=== PATIENT | female | born 1955 | race African-American/Black ===

== ENCOUNTER 2020-09-20 17:37 | Outpatient (REF) | payer MEDICARE, MEDICAID, SELFPAY | END 2020-09-20 17:38 | disposition home or self-care (01) | LOC: HO.LAB 17:37 | PROVIDERS: Visit Provider Internal Medicine | DX: Z20.828 Contact with and (suspected) exposure to other viral communicable diseases (principal) | CPT/HCPCS: C9803; U0003 ==

== ENCOUNTER 2021-11-29 15:37 | Outpatient (REF) | payer MEDICARE, MEDICAID, SELFPAY ==
[2021-11-29 16:44] LABS: MANUAL DIFF FLAG NO
[2021-11-29 16:58] LABS: Basophils Percent Auto 0.5 % (0-2); Eosinophils Absolute Auto 0.2 X10*3/uL (0.0-0.4); Eosinophils Percent Auto 1.9 % (0-4); Hematocrit 44.2 % (37.0-47.0); Hemoglobin 13.6 g/dl (12.0-16.0); Imm Gran Abs Auto 0.03 X10*3/uL (0.00-0.03); Imm Gran Pct Auto 0.4 % (0.0-0.4); Lymphocytes Absolute Auto 2.9 X10*3/uL (1.2-4.9); Lymphocytes Percent Auto 34.4 % (20-40); Mean Corpuscular HGB Conc 30.8 g/dl (31.0-35.0); Mean Corpuscular Hemoglobin 31.3 pg (27.0-33.0); Mean Corpuscular Volume 101.6 fL (80.0-98.0); Mean Platelet Volume 8.7 fL (9.4-12.3); Monocytes Absolute Auto 0.5 X10*3/uL (0.1-1.2); Monocytes Percent Auto 5.9 % (2-11); Neutrophils Absolute Auto 4.8 x10*3/uL (2.0-8.3); Neutrophils Percent Auto 56.9 % (45-73); Platelet Count 384 X10*3/uL (160-400); Red Blood Count 4.35 X10*6/uL (4.20-5.50); Red Cell Distribution Width 14.5 % (11.0-16.0); White Blood Count 8.4 X10*3/uL (4.8-10.8)
== END 2021-11-29 15:38 | disposition home or self-care (01) ==
LOC: HO.LAB 15:37
PROVIDERS: Visit Provider Nurse Practitioner
DX: K57.92 Diverticulitis of intestine, part unspecified, without perforation or abscess without bleeding (principal); K92.1 Melena; R11.2 Nausea with vomiting, unspecified; R10.9 Unspecified abdominal pain
CPT/HCPCS: 36415; 80053; 85025; 99202

== ENCOUNTER 2021-12-19 14:17 | Outpatient (REF) | payer MEDICARE, MEDICAID, SELFPAY ==
[2021-12-19 15:21] LABS: Alanine Aminotransferase 11 U/L (0-31); Albumin Level 4.1 g/dL (3.5-5.0); Alkaline Phosphatase 54 U/L (39-117); Anion Gap 11 (12-20); Aspartate Amino Transferase 19 U/L (5-31); Bilirubin Total 0.6 mg/dL (0.0-1.0); Blood Urea Nitrogen 18 mg/dL (9-16); Calcium 9.7 mg/dL (8.4-10.2); Carbon Dioxide 27 mmol/L (22-29); Chloride 108 mmol/L (96-108); Estimated Glomerular Filt Rate > 60; Glucose Random 111 mg/dL (60-115); Potassium 3.7 mmol/L (3.3-5.1); Sodium 142 mmol/L (135-145); Total Protein 6.6 g/dL (6.5-8.0)
== END 2021-12-19 14:18 | disposition home or self-care (01) ==
LOC: HO.LAB 14:17
PROVIDERS: Visit Provider Nurse Practitioner
DX: K57.92 Diverticulitis of intestine, part unspecified, without perforation or abscess without bleeding (principal); K92.1 Melena
CPT/HCPCS: 36415; 80053

== ENCOUNTER 2022-01-07 07:56 | Outpatient (REF) | payer MEDICARE, MEDICAID, SELFPAY ==
--- NOTE | ~2022-01-07 | CT_ITS ---
EXAMINATION: CT ABDOMEN AND PELVIS WITH CONTRAST CLINICAL INFORMATION: Unspecified abdominal pain. COMPARISON: 06/17/2008 TECHNIQUE: Multidetector volumetric images were obtained from the superior aspect of the liver through the pubic symphysis following administration 85 mL of Omnipaque 350 intravenous contrast. Sagittal and coronal reformatted images were obtained on the technologist's workstation. Oral contrast: Yes This CT examination was performed using dose optimization techniques as appropriate, variously including the following: *Automated exposure control *Adjustment of mA and/or kV according to patient size (this includes techniques or standardized protocols for targeted exams where dose is matched to indication/reason for exam; i.e. extremities or head) *Use of iterative reconstruction technique DLP: 596 mGy-cm FINDINGS: LUNG BASES: The visualized lung bases are unremarkable. LIVER, GALLBLADDER, AND BILIARY TREE: The liver is normal in size, shape, and attenuation. No focal hepatic lesion or biliary ductal dilatation is present. The gallbladder is unremarkable with no evidence of radiopaque gallstones, gallbladder wall thickening, or obvious pericholecystic inflammatory changes. PANCREAS: Unremarkable. SPLEEN: Unremarkable. ADRENAL GLANDS: There is mild nodularity of the right adrenal gland measured 1.0 x 1.1 cm. KIDNEYS AND URETERS: There is a 6 mm exophytic cyst in the lower pole of the left kidney. There is no hydroureteronephrosis, renal masses. BLADDER: Unremarkable. GASTROINTESTINAL TRACT: The small and large bowel are unremarkable. The appendix is unremarkable. ABDOMINAL WALL: No significant hernia is appreciated. LYMPH NODES: Normal. VASCULAR: Unremarkable. PELVIC VISCERA: Patient is status post hysterectomy. There is small amount of fluid in the right site of the pelvis of unknown origin. OSSEOUS STRUCTURES: There are degenerative changes at the level of L4-L5 and L5-S1 with narrowing of disc spaces and vacuum phenomenon. CT/CT abdomen pelvis w con IMPRESSION: Mild hypertrophy of the right adrenal gland. Small exophytic cyst of left kidney. Status post hysterectomy. Small amount of fluid in the right side to the pelvis of unknown origin. Fleischner guidelines were followed.
[2022-01-07] MEDS: Barium Sulfate Oral (Vanilla) 450 ML ORAL.SUSP 900 ML PO (11:16)
[2022-01-07] MEDS: iohexoL 350 MG/ML 100 ML INFUS..BTL IV (11:16)
== END 2022-01-07 07:57 | disposition home or self-care (01) ==
LOC: HO.CT 07:56
PROVIDERS: Visit Provider Nurse Practitioner
DX: R10.9 Unspecified abdominal pain (principal); R11.2 Nausea with vomiting, unspecified
CPT/HCPCS: 74177; Q9967

== ENCOUNTER → 2022-01-24 15:53 | Outpatient (BNVA) | payer MEDICARE, MEDICAID, SELFPAY | PROVIDERS: Visit Provider Nurse Practitioner | DX: K57.92 Diverticulitis of intestine, part unspecified, without perforation or abscess without bleeding (principal); R11.2 Nausea with vomiting, unspecified | CPT/HCPCS: 99212 ==

== ENCOUNTER → 2022-03-05 16:06 | Outpatient (BNVA) | payer MEDICARE, MEDICAID, SELFPAY | PROVIDERS: PCP Internal Medicine; Referring Provider Internal Medicine; Visit Provider Nurse Practitioner | DX: K57.92 Diverticulitis of intestine, part unspecified, without perforation or abscess without bleeding (principal); D75.89 Other specified diseases of blood and blood-forming organs; R11.2 Nausea with vomiting, unspecified | CPT/HCPCS: 99212 ==

== ENCOUNTER 2022-03-08 08:57 | Outpatient (REF) | payer MEDICARE, MEDICAID, SELFPAY ==
--- NOTE | ~2022-03-08 | MM_ITS ---
EXAMINATION: MM SCREENING DIGITAL BREAST TOMOSYNTHESIS, BILATERAL CLINICAL INFORMATION: Screening. Asymptomatic. The lifetime risk of breast cancer based on the Tyrer-Cuzick Model is 3%. COMPARISON: Outside mammography: 04/02/2011 ([facility]). TECHNIQUE: Digital breast tomosynthesis is performed in both the craniocaudal and mediolateral oblique views along with computer-aided detection (CAD). Synthesized 2D images are generated from the tomosynthesis. FINDINGS: The breasts are almost entirely fatty (ACR BI-RADS breast composition Category a). There are no significant masses, abnormal calcifications, or other abnormalities. Background stromal and fibroglandular densities are stable. No architectural abnormality. The axilla and skin contours are unremarkable. No significant changes. MM/MM tomosynthesis screening BI IMPRESSION: No mammographic evidence of malignancy. ASSESSMENT: BI-RADS 1: Negative RECOMMENDATION: Routine annual mammography screening. This patient's information was entered into a reminder system with a target due date for their next mammogram.
--- NOTE | ~2022-03-08 | MM_ITS ---
EXAMINATION: BONE DENSITOMETRY CLINICAL INDICATION: Menopause. COMPARISON: This is the patient's baseline examination. TECHNIQUE: Using a [employer] DXA System (software version: 13.1) manufactured by [employer], dual-energy x-ray absorptiometry was performed of the lumbar spine and left hip. The images are of good technical quality. Summary results are attached. FINDINGS: AP SPINE L1-L3 (excluding L4): The data of L1-L4 has been changed to exclude the L4 vertebral body, because degenerative sclerosis at this level may cause overestimation of lumbar spine density. BMD 1.156 g/cm2, Z-score 0.6, T-score -0.1, normal. LEFT FEMUR, NECK: BMD 0.830 g/cm2, Z-score -0.9, T-score -1.5, osteopenia. LEFT FEMUR, TOTAL: BMD 0.818 g/cm2, Z-score -1.3, T-score -1.5, osteopenia. IDENTIFIED RISK FACTORS: Menopause, hysterectomy, tobacco use (current smoker). HISTORY OF FRACTURE: None listed. MEDICATIONS: None listed. MM/XR DEXA axial skeleton IMPRESSION: 1. DIAGNOSIS: Osteopenia based on the lowest T-score value of -1.5 in the femur neck and total femur applying World Health Organization criteria. 2. 10-YEAR FRACTURE RISK PREDICTION, FRAX: Major osteoporotic fracture (clinical spine, forearm, hip or shoulder) 4.3%. Hip fracture 0.9%. 3. Treatment Recommendations: NOF guidelines recommend consideration for treatment in postmenopausal women and men age 50 and older presenting with the following: -A hip or vertebral (clinical or morphometric) fracture. -T-score less than or equal to -2.5 at the femoral neck or spine after appropriate evaluation to exclude secondary causes. -Low bone mass at the hip or spine and a 10-year fracture probability by FRAX of greater than or equal to 3% for hip fracture or greater than or equal to 20% for major osteoporotic fracture based on the [place] adapted WHO algorithm. 4. Other Recommendations: All treatment decisions require clinical judgment and consideration of individual patient factors, including patient preferences, comorbidities, previous drug use, risk factors not captured in the FRAX model (e.g. frailty, falls, vitamin D deficiency, increased bone turnover, interval significant decline in bone density) and possible under or overestimation of fracture risk by FRAX. Additional medical evaluation for secondary cause of low bone mineral density may be appropriate. FUTURE SCAN RECOMMENDATION: People with diagnosed cases of osteoporosis or at high risk for fracture should have regular bone mineral density tests. For patients eligible for Medicare, routine testing is allowed once every 2 years. The testing frequency can be increased to one year for patients who have rapidly progressing disease, those who are receiving or discontinuing medical therapy to restore bone mass, or have additional risk factors.
== END 2022-03-08 08:58 | disposition home or self-care (01) ==
LOC: HO.MAMMO 08:57
PROVIDERS: PCP Internal Medicine; Visit Provider Internal Medicine
DX: Z12.31 Encounter for screening mammogram for malignant neoplasm of breast (principal); Z13.820 Encounter for screening for osteoporosis; Z78.0 Asymptomatic menopausal state
CPT/HCPCS: 77063; 77067; 77080

== ENCOUNTER 2023-06-09 09:41 | Outpatient (REF) | payer MEDICARE, MEDICAID, SELFPAY ==
[2023-06-09 14:29] LABS: Basophils Percent Auto 0.3 % (0-2); Eosinophils Absolute Auto 0.2 X10*3/uL (0.0-0.4); Eosinophils Percent Auto 1.6 % (0-4); Hemoglobin 13.5 g/dl (12.0-16.0); Imm Gran Abs Auto 0.02 X10*3/uL (0.00-0.03); Imm Gran Pct Auto 0.2 % (0.0-0.4); Lymphocytes Absolute Auto 3.3 X10*3/uL (1.2-4.9); Lymphocytes Percent Auto 35.1 % (20-40); MANUAL DIFF FLAG NO; Mean Corpuscular HGB Conc 32.9 g/dl (31.0-35.0); Mean Corpuscular Hemoglobin 30.6 pg (27.0-33.0); Mean Platelet Volume 8.9 fL (9.4-12.3); Monocytes Absolute Auto 0.5 X10*3/uL (0.1-1.2); Monocytes Percent Auto 5.4 % (2-11); Neutrophils Absolute Auto 5.4 x10*3/uL (2.0-8.3); Neutrophils Percent Auto 57.4 % (45-73); Platelet Count 373 X10*3/uL (160-400); Red Blood Count 4.41 X10*6/uL (4.20-5.50); Red Cell Distribution Width 13.5 % (11.0-16.0); White Blood Count 9.4 X10*3/uL (4.8-10.8)
[2023-06-09 15:33] LABS: Alanine Aminotransferase 11 U/L (0-31); Albumin Level 4.1 g/dL (3.5-5.0); Alkaline Phosphatase 49 U/L (39-117); Anion Gap 16 (12-20); Aspartate Amino Transferase 19 U/L (5-31); Bilirubin Total 0.5 mg/dL (0.0-1.0); Blood Urea Nitrogen 16 mg/dL (9-16); Calcium 9.6 mg/dL (8.4-10.2); Carbon Dioxide 21 mmol/L (22-29); Chloride 109 mmol/L (96-108); Cholesterol 196 mg/dL; Estimated Glomerular Filt Rate > 60; Glucose Fasting 81 mg/dL (60-99); HDL Cholesterol 63 mg/dL; LDL Cholesterol Calculated 107 mg/dl; Sodium 142 mmol/L (135-145); Total Protein 6.8 g/dL (6.5-8.0); Triglycerides 130 mg/dL
== END 2023-06-09 09:42 | disposition home or self-care (01) ==
LOC: HO.CHCLDS 09:41
PROVIDERS: Visit Provider Internal Medicine
DX: I10 Essential (primary) hypertension (principal)
CPT/HCPCS: 36415; 80053; 80061; 85025

== ENCOUNTER 2023-10-06 15:51 | Outpatient (REF) | payer MEDICARE, SELFPAY ==
[2023-10-06 18:20] LABS: Anion Gap 13 (12-20); Blood Urea Nitrogen 23 mg/dL (9-16); Calcium 9.3 mg/dL (8.4-10.2); Carbon Dioxide 27 mmol/L (22-29); Chloride 105 mmol/L (96-108); Estimated Glomerular Filt Rate 37; Glucose Random 114 mg/dL (60-115); Potassium 3.9 mmol/L (3.3-5.1); Sodium 141 mmol/L (135-145)
== END 2023-10-06 15:52 | disposition home or self-care (01) ==
LOC: HO.CHCLDS 15:51
PROVIDERS: Visit Provider Internal Medicine
DX: I10 Essential (primary) hypertension (principal)
CPT/HCPCS: 36415; 80048

== ENCOUNTER 2023-10-17 08:32 | Outpatient (REF) | payer MEDICARE, SELFPAY ==
[2023-10-17 15:02] LABS: Anion Gap 12 (12-20); Blood Urea Nitrogen 12 mg/dL (9-16); Carbon Dioxide 25 mmol/L (22-29); Chloride 109 mmol/L (96-108); Estimated Glomerular Filt Rate > 60; Glucose Random 98 mg/dL (60-115); Potassium 4.1 mmol/L (3.3-5.1); Sodium 142 mmol/L (135-145)
== END 2023-10-17 08:33 | disposition home or self-care (01) ==
LOC: HO.CHCLDS 08:32
PROVIDERS: Visit Provider Internal Medicine
DX: I10 Essential (primary) hypertension (principal)
CPT/HCPCS: 36415; 80048

== ENCOUNTER 2023-10-20 17:48 | Outpatient (REF) | payer MEDICARE, SELFPAY ==
[2023-10-20 17:56] LABS: Appearance Urine Clear; Color Urine Yellow; Glucose Urine UA Negative (Negative); Leukocyte Esterase Urine Negative (Negative); Nitrite Urine Negative (Negative); PH 5.5 (5.0-9.0); Specific Gravity - Urine 1.025 (1.005-1.025); UMIC TRIGGER UACC YES; Urine Blood Moderate (2+) (Negative); Urine Ketones Trace mg/dL (Negative); Urine Protein Negative (Neg-Trace)
[2023-10-20 18:01] LABS: Bacteria Urine None Seen (None Seen); Hyaline Casts Urine 0-2 /LPF (0-2); Squamous Epithelial Cell Urine 0-2 /HPF (0-2); WBC Urine 0-5 /HPF (0-5)
== END 2023-10-20 17:49 | disposition home or self-care (01) ==
LOC: HO.CHCLNP 17:48
PROVIDERS: Visit Provider Registered Nurse
DX: R39.9 Unspecified symptoms and signs involving the genitourinary system (principal)
CPT/HCPCS: 81001; 87086

== ENCOUNTER 2024-07-22 16:11 | Outpatient (REF) | payer MEDICARE, SELFPAY ==
[2024-07-22 17:34] LABS: Hemoglobin 15.4 g/dl (12.0-16.0); PLT CLUMP 1; Red Cell Distribution Width 13.1 % (11.0-16.0); SCAN SMEAR FLAG 1
[2024-07-22 17:36] LABS: Basophils Absolute Auto 0.1 X10*3/uL (0.0-0.2); Basophils Percent Auto 0.7 % (0-2); Eosinophils Absolute Auto 0.1 X10*3/uL (0.0-0.4); Eosinophils Percent Auto 0.8 % (0-4); Hematocrit 42.7 % (37.0-47.0); Imm Gran Abs Auto 0.03 X10*3/uL (0.00-0.03); Imm Gran Pct Auto 0.3 % (0.0-0.4); Lymphocytes Absolute Auto 3.3 X10*3/uL (1.2-4.9); Lymphocytes Percent Auto 32.6 % (20-40); MANUAL DIFF FLAG SCAN; Mean Corpuscular HGB Conc 36.1 g/dl (31.0-35.0); Mean Corpuscular Hemoglobin 31.7 pg (27.0-33.0); Mean Corpuscular Volume 87.9 fL (80.0-98.0); Mean Platelet Volume 9.2 fL (9.4-12.3); Monocytes Absolute Auto 0.6 X10*3/uL (0.1-1.2); Monocytes Percent Auto 5.8 % (2-11); Neutrophils Absolute Auto 6.1 x10*3/uL (2.0-8.3); Neutrophils Percent Auto 59.8 % (45-73); Red Blood Count 4.86 X10*6/uL (4.20-5.50); White Blood Count 10.2 X10*3/uL (4.8-10.8)
[2024-07-22 18:01] LABS: Platelet Count 334 X10*3/uL (160-400); SLIDE REVIEW VERIFIED
[2024-07-22 18:02] LABS: Alanine Aminotransferase 11 U/L (0-31); Albumin Level 4.5 g/dL (3.5-5.0); Alkaline Phosphatase 50 U/L (39-117); Anion Gap 15 (12-20); Aspartate Amino Transferase 28 U/L (5-31); Bilirubin Total 0.4 mg/dL (0.0-1.0); Blood Urea Nitrogen 28 mg/dL (9-16); Calcium 10.7 mg/dL (8.4-10.2); Carbon Dioxide 23 mmol/L (22-29); Chloride 105 mmol/L (96-108); Estimated Glomerular Filt Rate 48; Glucose Random 107 mg/dL (60-115); Potassium 4.2 mmol/L (3.3-5.1); Sodium 139 mmol/L (135-145); Total Protein 8.4 g/dL (6.5-8.0)
[2024-07-22 18:17] LABS: TSH reflex Free T4 1.18 uIU/mL (0.32-4.0)
== END 2024-07-22 16:12 | disposition home or self-care (01) ==
LOC: HO.CHCLDS 16:11
PROVIDERS: Visit Provider Internal Medicine
DX: M79.10 Myalgia, unspecified site (principal); R05.1 Acute cough
CPT/HCPCS: 36415; 80053; 84443; 85025

== ENCOUNTER 2024-07-27 14:46 | Outpatient (REF) | payer MEDICARE, SELFPAY ==
--- NOTE | ~2024-07-27 | XR_ITS ---
EXAMINATION: XR CHEST CLINICAL INFORMATION: Cough and lightheadedness COMPARISON: None available. TECHNIQUE: 2 views of the chest were obtained. FINDINGS: The heart size is normal. Right-sided aortic arch and descending aorta which is somewhat tortuous. Normal hilar silhouettes. Lungs demonstrate mild hyperinflation and mild stable scarring in the left lower lobe anteriorly, and the lateral right costophrenic angle. Otherwise, the lungs appear clear. No effusions or pneumothorax. No discrete osseous abnormality. Degenerative spinal changes. XR/XR chest 2V IMPRESSION: 1. No active disease identified. 2. Right-sided aortic arch and descending aorta, which is tortuous. Electronically signed by: Oswaldo Peralta MD 10/06/2024 02:01 PM ERI DIAZ
[2024-07-27 18:13] LABS: Anion Gap 14 (12-20); Blood Urea Nitrogen 17 mg/dL (9-16); Calcium 9.6 mg/dL (8.4-10.2); Carbon Dioxide 27 mmol/L (22-29); Chloride 102 mmol/L (96-108); Estimated Glomerular Filt Rate > 60; Glucose Random 127 mg/dL (60-115); Sodium 140 mmol/L (135-145)
[2024-07-27 19:27] LABS: Potassium 2.8 mmol/L (3.3-5.1)
== END 2024-07-27 14:47 | disposition home or self-care (01) ==
LOC: HO.XRAY 14:46
PROVIDERS: PCP Internal Medicine; Visit Provider Internal Medicine
DX: Z13.89 Encounter for screening for other disorder (principal)
CPT/HCPCS: 36415; 71046; 80048

== ENCOUNTER → 2024-07-27 15:11 | Outpatient (BNV) | payer MEDICARE, SELFPAY | PROVIDERS: PCP Internal Medicine; Visit Provider Radiology Diagnostic Radiology | DX: R05.1 Acute cough (principal) | CPT/HCPCS: 71046 ==

== ENCOUNTER 2024-07-27 18:43 | Emergency (ER) | payer MEDICARE, MEDICAID, SELFPAY ==
[2024-07-27 19:39] VITALS: BP 118/65; PULSE 64; RESP 18; TEMP 36.9; O2SAT 97; BMI 30.4
--- NOTE | 2024-07-27 19:39 | ED_ITS ---
HPI - Recheck/Abnormal Lab/Rx General Chief Complaint: Recheck/Abnormal Lab/Rx Stated Complaint: Abnormal labs/Called back to ER Time Seen by Provider: 07/27/24 23:04 Source: patient Mode of arrival: ambulatory Limitations: no limitations History of Present Illness ED Provider: Dr. Marycruz Pennington HPI narrative: Patient comes to the emergency room complaining of low potassium levels. Patient states that she went to see her primary care physician, got lab work done and was told to come to the emergency room because her potassium was low. Patient states that she is completely asymptomatic. Related Data Home Medications ?Medication ?Instructions ?Recorded ?Confirmed sertraline 50 mg tablet 50 mg PO DAILY 01/24/22 Previous Rx's ?Medication ?Instructions ?Recorded peg 3350-electrolytes 236 240 ml PO Q10M 1 day #4,000 mL 11/29/21 gram-22.74 gram-6.74 gram-5.86 gram solution (Golytely) promethazine 25 mg tablet 25 mg PO QID PRN nausea and 03/05/22 vomiting #90 tabs omeprazole 40 mg capsule,delayed 40 mg PO DAILY #90 caps 06/04/22 release potassium chloride 20 mEq 20 meq PO DAILY #30 tabs 07/27/24 tablet,extended release Allergies Allergy/AdvReac Type Severity Reaction Status Date / Time No Known Allergies Allergy Verified 07/27/24 19:42 Review of Systems 2 Review of Systems: Constitutional : No Weight loss, No Fever, No Chills, No Night Sweats, No Fatigue, No Malaise ENT/Mouth : No Hearing loss, No Ear Pain, No Nasal Congestion, No Sinus Pain, No Hoarseness, No sore throat, No Rhinorrhea, No Swallowing Difficulty Eyes: No Eye Pain, No Swelling, No Redness, No Foreign Body, No Discharge, No Vision Changes Cardiovascular : No Chest Pain, No SOB, No Dyspnea on Exertion, No Orthopnea, No Edema, No Palpitations Respiratory : No Cough, No Sputum, No Wheezing, No Smoke Exposure, No Dyspnea Gastrointestinal : No Nausea, No Vomiting, No Diarrhea, No Constipation, No abdominal Pain, No Hematochezia, No Melena Genitourinary : no irregular bleeding, No Dysuria, No Urinary Frequency, No Hematuria, No Urinary Incontinence, No Urgency, No Flank Pain, No Urinary Flow Changes, No Hesitancy Musculoskeletal : No joint pain, No Myalgias, No Joint Swelling Skin : No Skin Lesions, No rash Neuro : No Weakness, No Numbness, No Paresthesias, No Loss of Consciousness, No Dizziness, No Headache Psych : No Anxiety/Panic, No Depression, No SI/HI/AH/VH, No Social Issues, Heme/Lymph: No Bruising, No Bleeding,No Lymphadenopathy Endocrine : No Polyuria, No Polydipsia, No Temperature Intolerance [facility] Past Medical History Medical History (Updated 07/27/24 @ 23:15 by Marycruz Pennington MD) Hypertension Depression with anxiety Diverticulitis Surgical History (Updated 11/29/21 @ 16:00 by JOSE Fisher) History of colonoscopy History of hysterectomy Social History Social History (System 05/25/21 @ 13:23 by Carla Gagnon) Smoked in Last 30 Days: Yes Use of substances other than those prescribed or required for medical reasons: Yes Substance Use Type: Marijuana Substance Use Frequency: Chronic Longstanding Advance Directives: No Advance Directives Information Provided: No Do you have a plan to hurt others: No Plan Physical Exam 2 Vital Signs: Vital Signs: Last Vital Signs Temp 98.4 F 07/27/24 19:39 Pulse 58 07/27/24 21:55 Resp 18 07/27/24 21:55 BP 118/84 07/27/24 21:55 Pulse Ox 97 07/27/24 21:55 O2 Del Method Room Air 07/27/24 21:55 BMI result Body Mass Index 30.4 Const: Other: Appearance: Alert. Oriented X3. No acute distress. Eyes: Pupils equal, round and reactive to light. ENT: Pharynx normal. Neck: Normal inspection. Neck supple. No lymph nodes noted. No crepitus CVS: Normal heart rate and rhythm. Pulses normal. Normal S1 and S2 Respiratory: No respiratory distress. Breath sounds normal. No Wheezing. No rales Abdomen: Soft and nontender. No rigidity. No distention. Skin: Skin warm and dry. Normal skin color. Normal skin turgor. Extremities: No lower extremity edema. No Lacerations. No Rash Neuro: Oriented X 3. No motor deficit. No sensory deficit. Moving all extremities. No slurred speech. CN 2 through 12 grossly intact Psych: calm, cooperative, normal affect Course Course Course Narrative: This is a Rapid Medical Examination (RME) performed by Michael Johnson PA-C in triage. Full HPI, ROS, assessment and treatment plan per primary provider in the Main ED. 69 yo female with history of hypertension started on chlorthalidone in February who presents to the ER for evaluation of low potassium level that was found on her routine lab work today. Patient went to her PCP last week and had routine labs ordered. She was called with low potassium of 2.8. She endorses lower extremity cramping and foot cramping. She denies any nausea, vomiting, diarrhea. No chest pain or shortness of breath, feeling well otherwise. Plan: 60 mEq of oral potassium given in triage. EKG ordered, plan to repeat labs in an hour Medications Administered Discontinued Medications Generic Name Dose Route Start Last Admin Trade Name Freq PRN Reason Stop Dose Admin Potassium Chloride 60 meq 07/27/24 18:47 07/27/24 19:47 Potassium Chloride Er 20 Meq Tab.Er.Prt PO 07/27/24 18:48 60 meq ONCE ONE Administration Medical Decision Making Medical Decision Making MDM Narrative: my interpretation of labs: White blood cell count 11.4, nonspecific, no respiratory or UTI symptoms. Potassium from earlier today 2.8. After p.o. potassium improved to 3.3. - I discussed with the patient that it is likely that her chlorthalidone dropped her potassium. While she is taking this medication, patient will be on supplements, patient agrees with plan. Patient needs close follow-up with her PCP to recheck potassium levels Differential Diagnosis Differential Diagnoses: The differential diagnosis associated with the presentation includes ( hypokalemia) Lab Data 07/27/24 20:44 07/27/24 20:44 Labs: Lab Results 07/27/24 Range/Units 20:44 WBC 11.4 H (4.8-10.8) X10*3/uL RBC 4.21 (4.20-5.50) X10*6/uL Hgb 13.2 (12.0-16.0) g/dl Hct 37.6 (37.0-47.0) % MCV 89.3 (80.0-98.0) fL MCH 31.4 (27.0-33.0) pg MCHC 35.1 H (31.0-35.0) g/dl RDW 13.2 (11.0-16.0) % Plt Count 336 (160-400) X10*3/uL MPV 8.5 L (9.4-12.3) fL Immature Gran % (Auto) 0.4 (0.0-0.4) % Neut % (Auto) 62.8 (45-73) % Lymph % (Auto) 29.4 (20-40) % [place] % (Auto) 5.8 (2-11) % Eos % (Auto) 1.2 (0-4) % Baso % (Auto) 0.4 (0-2) % Lymph # (Auto) 3.4 (1.2-4.9) X10*3/uL [place] # (Auto) 0.7 (0.1-1.2) X10*3/uL Eos # (Auto) 0.1 (0.0-0.4) X10*3/uL Baso # (Auto) 0.0 (0.0-0.2) X10*3/uL Abs Immat Gran (auto) 0.04 H (0.00-0.03) X10*3/uL Absolute Neuts (auto) 7.2 (2.0-8.3) x10*3/uL Absolute Nucleated RBC 0.000 (0.0-0.012) X10*3/uL Nucleated RBC % (auto) 0.0 (0.0-0.2) /100WBC Sodium 142 (135-145) mmol/L Potassium 3.3 (3.3-5.1) mmol/L Chloride 105 (96-108) mmol/L Carbon Dioxide 27 (22-29) mmol/L Anion Gap 13 (12-20) BUN 22 H (9-16) mg/dL Creatinine 0.94 (0.5-1.4) mg/dL Estim Creat Clear Calc 50.9 Estimated GFR 59 Random Glucose 119 H (60-115) mg/dL Calcium 9.6 (8.4-10.2) mg/dL Magnesium 2.2 (1.6-2.6) mg/dL Critical Care Time Critical Care Time Critical Care Time: Yes Total Critical Care Time: 45 Attestation: I have personally provided critical care time. Time includes review of lab data, radiology results, discussion with consultants, and monitoring for potential decompensation. Intervention performed as documented. Discharge Plan Discharge Clinical Impression: Hypokalemia Patient Disposition: Home, Self-Care Instructions: Hypokalemia (ED) Additional Instructions: Please follow-up with your primary care physician tomorrow. If you have any worsening or new symptoms, please return to the emergency room or call 911 Prescriptions: New potassium chloride 20 mEq tablet extended release 20 meq PO DAILY Qty: 30 0RF No Action omeprazole 40 mg capsule,delayed release(DR/EC) 40 mg PO DAILY Qty: 90 1RF peg 3350-electrolytes [Golytely] 236-22.74-6.74 -5.86 gram recon soln 240 ml PO Q10M 1 Days Qty: 4000 0RF Rx Instructions: until fecal effluent is clear; do not exceed a total volume of 2,000 mL sertraline 50 mg tablet 50 mg PO DAILY promethazine 25 mg tablet 25 mg PO QID PRN (Reason: nausea and vomiting) Qty: 90 0RF Print Language: Korean
--- NOTE | 2024-07-27 19:41 | ECG_ITS ---
Test Reason : HYPOKALEMIA Blood Pressure : / mmHG Vent. Rate : 057 BPM Atrial Rate : 057 BPM P-R Int : 180 ms QRS Dur : 080 ms QT Int : 468 ms P-R-T Axes : 052 035 020 degrees QTc Int : 455 ms Sinus bradycardia with Premature atrial complexes Low voltage QRS T wave abnormality, consider anterolateral ischemia Abnormal ECG No previous ECGs available Referred By: Marline Johnson Electronically Signed By:SEAN LAUGHLIN
[2024-07-27] MEDS: Potassium Chloride ER 20 MEQ TAB.ER.PRT 60 MEQ PO (19:47)
[2024-07-27 20:48] LABS: MANUAL DIFF FLAG NO
[2024-07-27 20:50] LABS: Basophils Percent Auto 0.4 % (0-2); Eosinophils Absolute Auto 0.1 X10*3/uL (0.0-0.4); Eosinophils Percent Auto 1.2 % (0-4); Hematocrit 37.6 % (37.0-47.0); Hemoglobin 13.2 g/dl (12.0-16.0); Imm Gran Abs Auto 0.04 X10*3/uL (0.00-0.03); Imm Gran Pct Auto 0.4 % (0.0-0.4); Lymphocytes Absolute Auto 3.4 X10*3/uL (1.2-4.9); Lymphocytes Percent Auto 29.4 % (20-40); Mean Corpuscular HGB Conc 35.1 g/dl (31.0-35.0); Mean Corpuscular Hemoglobin 31.4 pg (27.0-33.0); Mean Corpuscular Volume 89.3 fL (80.0-98.0); Mean Platelet Volume 8.5 fL (9.4-12.3); Monocytes Absolute Auto 0.7 X10*3/uL (0.1-1.2); Monocytes Percent Auto 5.8 % (2-11); Neutrophils Absolute Auto 7.2 x10*3/uL (2.0-8.3); Neutrophils Percent Auto 62.8 % (45-73); Platelet Count 336 X10*3/uL (160-400); Red Blood Count 4.21 X10*6/uL (4.20-5.50); Red Cell Distribution Width 13.2 % (11.0-16.0); White Blood Count 11.4 X10*3/uL (4.8-10.8)
[2024-07-27 21:01] LABS: Anion Gap 13 (12-20); Blood Urea Nitrogen 22 mg/dL (9-16); Calcium 9.6 mg/dL (8.4-10.2); Carbon Dioxide 27 mmol/L (22-29); Chloride 105 mmol/L (96-108); Creatinine Clr Calc Pharmacy 50.9; Estimated Glomerular Filt Rate 59; Glucose Random 119 mg/dL (60-115); Magnesium 2.2 mg/dL (1.6-2.6); Potassium 3.3 mmol/L (3.3-5.1); Sodium 142 mmol/L (135-145)
[2024-07-27 21:55] VITALS: BP 118/84; PULSE 58; RESP 18; O2SAT 97
[2024-07-27 23:23] VITALS: BP 124/74; PULSE 54; RESP 18; TEMP 36.8; O2SAT 97
== END 2024-07-27 23:24 | disposition home or self-care (01) ==
PROVIDERS: Physician Assistant; Emergency Provider Emergency Medicine; PCP Internal Medicine
DX: E87.6 Hypokalemia (principal); R79.89 Other specified abnormal findings of blood chemistry; R00.1 Bradycardia, unspecified; Z79.899 Other long term (current) drug therapy
CPT/HCPCS: 36415; 71046; 80048; 83735; 85025; 93005; 99283; 99284

== ENCOUNTER 2024-08-11 14:52 | Outpatient (REF) | payer MEDICARE, MEDICAID, SELFPAY ==
[2024-08-11 18:37] LABS: Anion Gap 14 (12-20); Blood Urea Nitrogen 14 mg/dL (9-16); Calcium 10.1 mg/dL (8.4-10.2); Carbon Dioxide 27 mmol/L (22-29); Chloride 104 mmol/L (96-108); Estimated Glomerular Filt Rate 54; Glucose Random 80 mg/dL (60-115); Potassium 3.5 mmol/L (3.3-5.1); Sodium 141 mmol/L (135-145)
== END 2024-08-11 14:53 | disposition home or self-care (01) ==
LOC: HO.CHCLDS 14:52
PROVIDERS: Visit Provider Internal Medicine
DX: I10 Essential (primary) hypertension (principal)
CPT/HCPCS: 36415; 80048

== ENCOUNTER 2024-09-20 14:44 | Outpatient (REF) | payer MEDICARE, MEDICAID, SELFPAY | END 2024-09-20 14:45 | disposition home or self-care (01) | LOC: CF 14:44 | PROVIDERS: Visit Provider Internal Medicine | DX: Z13.89 Encounter for screening for other disorder (principal) ==

== ENCOUNTER 2024-09-21 15:38 | Outpatient (REF) | payer MEDICARE, MEDICAID, SELFPAY | END 2024-09-21 15:39 | disposition home or self-care (01) | LOC: HO.CHCLNP 15:38 | PROVIDERS: Visit Provider Internal Medicine | DX: K21.9 Gastro-esophageal reflux disease without esophagitis (principal) | CPT/HCPCS: 87338 ==

== ENCOUNTER 2024-09-29 17:55 | Outpatient (REF) | payer MEDICARE, MEDICAID, SELFPAY | END 2024-09-29 17:56 | disposition home or self-care (01) | LOC: HO.HHCLNP 17:55 | PROVIDERS: Visit Provider Internal Medicine | DX: R10.9 Unspecified abdominal pain (principal); R31.29 Other microscopic hematuria | CPT/HCPCS: 87086 ==

== ENCOUNTER 2025-02-09 08:43 | Outpatient (AMB) | payer MEDICARE, MEDICAID, SELFPAY ==
--- NOTE | 2025-02-09 08:45 | A.OFFVIS_ITS ---
Intake Visit Reasons: dermoid cyst back Intake Note: Patient referred by pcp Dr. Portillo for cyst on back. Present for yrs. Reports cyst was drained about 20yrs ago. Patient c/o: itchy, bothersome. Accompanied by: Self / Same As Patient Allergies No Known Allergies Allergy (Verified 02/09/25 08:50) HPI Comments Details: Patient presents with a longstanding history of a left mid back sebaceous cyst. It is increasing in size, become more symptomatic. He would like to have removed. She has no such lesions elsewhere. Chart was reviewed and patient evaluated [facility] Medical History (Updated 07/28/24 @ 00:00 by Eden Beasley) Hypertension Depression with anxiety Diverticulitis Surgical History (Updated 02/09/25 @ 09:03 by Elvin Ibrahim MD) History of colonoscopy History of hysterectomy Social History (System 05/25/21 @ 13:23 by Carla Gagnon) Substance Use Type: Marijuana Physical Exam Chest Other: Chest breath sounds bilaterally, HS 1 in 2 GI Other: Abdomen is soft, benign Back/Spine/Pelvis Other: Left mid back demonstrates a very large sebaceous cyst measuring roughly 5 x 4 cm. Assessment & Plan Assessment & Plan (1) Sebaceous cyst: Code(s): L72.3 - Sebaceous cyst Category: Surgical Plan Risks, benefits, alternatives of excision of this large left mid back sebaceous cyst were reviewed with the patient and included but not limited to bleeding, infection, recurrence, numbness, pain, scarring, seroma, wound dehiscence, and the patient wished to proceed. All questions answered. Arrangements were made for this on a day which is convenient for her. Coding Level of Care Code New Pt Level 5 (75412) Diagnoses Sebaceous cyst L72.3
--- OUTSIDE RECORDS SUMMARY | 2025-02-09 09:15 | XMS_ITS | Encounter Summary ---
Demographics Address [address] [place] [address] Home Phone Work Phone Mobile Phone Preferred Language en Marital Status Single Confucianist Affiliation Unknown Race Black or Gin rican Ethnic Group or Author Organization [employer] Address [address] [place] [address] Care Team Providers Care Bunch Breaker Machine Operator Name Role Phone Wes Zamora MD Primary Care Prov ider Encounter Details Date Type Department Care Team (Late st Contact Info) Description 09/14/2024 Orders Only [facility] [address] [place], [place] [id number] ProviderMathew MD Social History Tobacco Use Types Packs/Day Years Used Date Smoking Tobacco: Former Cigarettes 0.5 30 Passive Smoke Exposure: Past Smokeless Tobacco: Never Alcohol Use Standard Drinks/Week Comments Yes 0 (1 standard drink = 0.6 oz pur e alcohol) Depression Answer Date Recorded Patient Health Questionnaire-9 Score 0 11/26/2022 Housing Stability Answer Date Recorded What is your housing situation today? I have [place] 08/29/[address] you li ve. Do you have problems with any of the following? None of the above 08/29/2023 Food Insecurity Answer Date Recorded Within the past 12 months, y ou worried that your food would run out before you got money to buy more: Never True 08/29/2023 Within the past 12 months,th e food you bought just didn't last and you didn't have enough money to get more: Never True Transportation Answer Date Recorded In the past 12 months, has l ack of transportation kept you from medical appts, meetings, work or from getting things needed for daily living? No 08/29/2023 Utilities Answer Date Recorded In the past 12 months, has t he electric, gas, oil or water company threatened to shut off services in your home? No 08/29/2023 Depression Answer Date Recorded Patient Health Questionnaire-2 Score 0 11/26/2022 Comments Unknown Sex and Gender Information Value Date Recorded Sex Assigned at Female 09/09/2022 10:17 AM EDT Legal Sex Female 10:17 AM EDT Gender Identity Female 09/09/2022 10:17 AM EDT Sexual Orientation Straight 09/09/2022 10 :17 AM EDT documented as of this encounter Plan of Treatment Not on file documented as of this encounter Procedures Procedure Name Priority Date/Time Associated Diagnosis Comments CT ABDOMEN PELVIS WO CONTRAST Routine 09/12/2024 12:[address] CHEST WO CONTRAST Routine 09/12/2024 12:09 PM EST documented in this encounter Results * CT Abdomen Pelvis w/o Contrast (09/12/2024 12:14 PM EST) Anatomical Region Laterality Modality Body, Pelvis, Abdomen Computed T omography Historical Provider MD BO CT PROCEDURES Final R esult * CT Chest w/o Contrast (09/12/2024 12:09 PM EST) Anatomical Region Laterality Modality Body, Chest Computed Tomogra phy Historical Provider MD BO CT PROCEDURES Final R esult documented in this encounter Visit Diagnoses Not on filedocumented in this encounter Additional Health Concerns Assessment Noted Time PHQ-9 Depression Total Score: 0 11/26/19 23 8:50 AM EST documented as of this encounter Care Teams Bunch Breaker Machine Operator Relationship Specialty Start Date End Date Wes Zamora MD [address] [place] [id number] PCP - General Internal Medicine 07/29/19 documented as of this encounter
--- OUTSIDE RECORDS SUMMARY | 2025-02-09 09:15 | XMS_ITS | Encounter Summary ---
Demographics Address [address] [place] [address] Home Phone Work Phone Mobile Phone Preferred Language en Marital Status Single Buddhism Affiliation Unknown Race Black or Gin rican Ethnic Group or Author Organization [employer] Address [address] [facility] 7t [place] [address] Care Team Providers Care Office Services Representative Name Role Phone Wes Zamora MD Primary Care Prov ider Reason for Visit * Reason Onset Date Comments Nurse Triage 02/10/2024 Encounter Details Date Type Department Care Team ([facility] st Contact Info) Description 02/10/2024 Telephone [facility] MED[facility]INE [address] [place] [address] Wes Zamora MD [address] [place], [place] [id number] Nurse Triage Social History Tobacco Use Types Packs/Day Years Used Date Smoking Tobacco: Former Cigarettes 0.5 30 Passive Smoke Exposure: Past Smokeless Tobacco: Never Alcohol Use Standard Drinks/Week Comments Yes 0 (1 standard drink = 0.6 oz pur e alcohol) Depression Answer Date Recorded Patient Health Questionnaire-9 Score 0 11/26/2022 Housing Stability Answer Date Recorded What is your housing situation today? I have [employer] 08/29/[address] you [...] AM EDT documented as of this encounter Miscellaneous Notes * Telephone Encounter - Albina Dawn RN - 02/10/2024 9:32 AM EDT Triage call Pt reports rash for last 3 days. Pt reports it started on right buttocks and has spreadto inner thigh. Pt reports bumpy, blistery, burning, painful , itchy rash. Pt considers this possibly to be shingles. Neg for fever. Pt was seen in [facility] Ed last week 02/06/24 for vomiting and dehydration and that has resolved . Pt did receive IV hydration in Ed. [facility] today at 1020am. Insurance is verified as active prior to booking. PT agrees with disposition and home care reviewed. Protocol Used: Rash or Redness - Localized (Adult) Protocol-Based Disposition: See in Office or Video Visit Today Video visit not offered Positive Triage Questions: * Painful rash with multiple small blisters grouped together (i.e., dermatomal distribution or band or stripe ) * Localized rash is very painful (no fever) * All higher-acuity triage questions were negative Care Advice Discussed: * Reassurance and Education - Mild Localized Rash * Wash the Area * Cold Pack for Mild Itching or Mild Pain * Hydrocortisone Cream for Itching * Don't Scratch * Contagiousness * Reasons To Call Back - Rash spreads or becomes worse - Rash lasts longer than 1 week - You become worse * Telephone Encounter - María Lainez - 02/10/2024 8:58 AM EDT Symptoms: Rash or Redness - Widespread, Blisters Outcome: Schedule a same-day appointment or talk to a nurse or provider today Reason: pt think is shingles The caller accepted this outcome documented in this encounter Plan of Treatment Not on file documented as of this encounter Visit Diagnoses Not on filedocumented in this encounter Additional Health Concerns Assessment Noted Time PHQ-9 Depression Total Score: 0 11/26/19 23 8:50 AM EST documented as of this encounter Care Teams Office Services Representative Relationship Specialty Start Date End Date Wes Zamora MD [address] [place] [id number] PCP - General Internal Medicine 07/29/19 documented as of this encounter
--- OUTSIDE RECORDS SUMMARY | 2025-02-09 09:15 | XMS_ITS | Encounter Summary ---
Demographics Address [address] [place] [address] Home Phone Work Phone Mobile Phone Preferred Language en Marital Status Single Baptist Affiliation Unknown Race Black or Gin rican Ethnic Group or Author Organization [employer] Address [address] [facility] 7[address] [place] [address] Care Team Providers Care Wood Ski Maker Name Role Phone Wes Zamora MD Primary Care Prov ider Reason for Visit * Reason Onset Date Comments Medication Question 03/22/2024 Encounter Details Date Type Department Care Team ([facility] st Contact Info) Description 03/22/[address] [facility] MEDICINE [address] [place] [address] Wes Zamora MD [address] [place] [address] Medication Question Social History Tobacco Use Types Packs/Day Years [...] encounter Miscellaneous Notes * Telephone Encounter - Attila Resendez - 03/22/2024 11:23 AM EDT Tc from pt requesting status on medication discussed during last office visit 03/17 (pt unsure on exact name). Pt attempted to picker and packer medication at pharmacy in which pharmacy informed pt nothing was sent. Please contact pt at [phone]. documented in this encounter Plan of Treatment Not on file documented as of this encounter Visit Diagnoses Not on filedocumented in this encounter Additional Health Concerns Assessment Noted Time PHQ-9 Depression Total Score: 0 11/26/19 23 8:50 AM EST documented as of this encounter Care Teams Wood Ski Maker Relationship Specialty Start Date End Date Wes Zamora MD [address] [place] [id number] PCP - General Internal Medicine 07/29/19 documented as of this encounter
--- OUTSIDE RECORDS SUMMARY | 2025-02-09 09:15 | XMS_ITS | Encounter Summary ---
Demographics Address [address] [place] [address] Home Phone Work Phone Mobile Phone Preferred Language en Marital Status Single Jainism Affiliation Unknown Race Black or Gin rican Ethnic Group or Author Organization [employer] Address [address] [facility] 7t [place] [address] Care Team Providers Care Residential Builder Name Role Phone Wes Zamora MD Primary Care Prov ider Reason for Visit * Reason Comments Med Refill Encounter Details Date Type Department Care Team ([facility] st Contact Info) Description 12/22/[address] [facility]S [address] [place] [address] Wes Zamora MD [address] [place] [address] Primary hypertension Social History Tobacco Use Types Packs/Day Years Used Date Smoking Tobacco: Former Cigarettes 0.5 30 Smokeless Tobacco: Never Alcohol Use Standard Drinks/Week Comments Yes 0 (1 standard drink = 0.6 oz pur e alcohol) Depression Answer Date Recorded Patient Health Questionnaire-9 Score 0 11/26/2022 Depression Answer Date Recorded Patient Health Questionnaire-2 [...] documented as of this encounter Visit Diagnoses Diagnosis Primary hypertension Unspecified essential hypertension documented in this encounter Additional Health Concerns Assessment Noted Time PHQ-9 Depression Total Score: 0 11/26/19 23 8:50 AM EST documented as of this encounter Care Teams Residential Builder Relationship Specialty Start Date End Date Wes Zamora MD [address] [place] [id number] PCP - General Internal Medicine 07/29/19 documented as of this encounter
--- OUTSIDE RECORDS SUMMARY | 2025-02-09 09:15 | XMS_ITS | Clinical Summary ---
Demographics Address [address] [place] [address] Home Phone Work Phone Mobile Phone Preferred Language en Marital Status Single Mormonism Affiliation Unknown Race Black or Gin rican Ethnic Group or Author Organization [employer] Address [address] [facility] [address] 7[address] [place] [address] Care Team Providers Care Housing Manager Name Role Phone Wes Zamora MD Primary Care Prov ider Allergies No known active allergies Medications acetaminophen (Tylenol 8 Hour) 650 MG ER tablet Take 1 tablet by mouth every 8 (eight) hours. 03/07/20 22 Active Blood Pressure kit Active fluticasone (Flonase) 50 MCG/ACT nasal spray Administer 1-2 sprays into each nostril in the morning. Shake gently. Before first use, prime pump. After use, clean tip and replace cap. 16 g 2 04/11/20 23 Active Diclofenac Sodium 1 % gelIndications: Neck pain APPLY TO THE NECK AND LEFT SHOULDER 3 TIMES A DAY 100 g 1 07/17/20 23 Active fluticasone (Flovent) 110 MCG/ACT inhalerIndicati ons:Bronchitis with bronchospasm,Wh eezing Inhale 1 puff in the morning and at bedtime. Rinse mouth with water after use to reduce aftertaste and incidence of candidiasis. Do not swallow. 12 g 11 09/08/20 23 Active nicotine (Nicoderm CQ) 7 MG/24HR patchIndication s:Smoking trying to quit Place 1 patch on the skin 1 (one) time each day at the same time. 30 patch 09/08/20 23 Active albuterol 108 (90 Base) MCG/ACT inhalerIndicati ons:Other cough INHALE 2 PUFFS EVERY 4 HOURS IF NEEDED FOR WHEEZING. 18 g 1 09/30/20 23 Active gabapentin (Neurontin) 300 MG capsule Take 1 tab orally tid prn neuropathic pain 30 capsule 02/20/20 24 Active gabapentin (Neurontin) 600 MG tabletIndicatio ns:Post herpetic neuralgia Take 1 tablet (600 mg) by mouth 2 times daily. 60 tablet 1 02/24/20 24 2024 Active celecoxib (CeleBREX) 200 MG capsuleIndicati ons:Post herpetic neuralgia TAKE 1 CAPSULE BY MOUTH TWICE A DAY 60 capsule 04/19/20 24 Active amLODIPine (Norvasc) 5 MG tablet Take 1 tablet (5 mg) by mouth Once per day. 30 tablet 11 09/20/20 24 2024 Active Omeprazole 20 MG tablet delayed-release Take 1 tablet (20 mg) by mouth 2 times daily. 60 tablet 10/21/20 24 Active chlorthalidone (Hygroton) 25 MG tabletIndicatio ns:Primary hypertension TAKE 1 TABLET BY MOUTH EVERY DAY IN THE MORNING 90 tablet 3 01/19/20 25 Active chlorthalidone (Hygroton) 25 MG tabletIndicatio ns:Primary hypertension Take 1 tablet (25 mg) by mouth in the morning. 30 tablet 11 09/08/20 23 2024 Discontinued(R eorder (will not trigger notification to Pharmacy)) Active Problems Problem Noted Date Diagnosed Date Epigastric pain 09/20/2024 Assessment & Plan (09/20/2024 6:43 PM EST): Patient continue with similar symptoms as last er visit, will add omeprazole, and sucralfate, will refer to gi, will also test for h pylori Encounter for screening mamm ogram for malignant neoplasm of breast 03/17/2024 Assessment & Plan (03/17/2024 6:55 PM EDT): Will refer for mammogram Chronic right shoulder pain 11/06/2023 Assessment & Plan (11/06/2023 8:00 PM EST): Will place order for xray, continue home rest, apply ice/heat, take tylenol as needed, will refer to PT Subacute cough 11/06/2023 Assessment & Plan (11/06/2023 8:02 PM EST): Patient with persistant cough, not wheezing, no fever, she is a chronic smoker, will order prednisone x [address] pneumology consult PAD (peripheral artery disease) 11/06/2023 Assessment & Plan (11/06/2023 8:08 PM EST): Will place vascular surgery consult for PAD eval Seasonal allergies 04/11/2023 Assessment & Plan (04/11/2023 9:07 AM EDT): Will start on flonase, complains of cough, itchy eyes, sneezing and congestion Nausea 12/26/2022 Diverticulitis 11/13/2022 Assessment & Plan (11/13/2022 3:20 PM EST): Sp admission for diverticulitis, report symptoms persistent, did finish antibiotics, has appt with surgery coming up. Aware if worsening symptoms to rtc. 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 Will increase Hyzaar to 100-25 mg if needed. ED precautions advised. 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 Will increase Hyzaar to 100-25 mg if needed. ED precautions advised. Assessment & Plan (04/11/2023 9:06 AM EDT): Controlled, reinforced low sodium diet and exercise as tolerated, will leave on same treatment, bp target <140/90, new labs will be ordered Assessment & Plan (12/26/2022 9:15 AM EST): Improved, results as follow: 134/78-121/80-116/75-120/80-116/79-138/82 Reinforced low sodium diet and exercise, continue current treatment, will follow up in 3 months Assessment & Plan (11/26/2022 9:18 AM EST): Not at target results as follow Am: 158/80-106/81-134/78-151/90/116/91 PM: 144/79-167/80-152/90-106/80-147/89 Reinforced low sodium diet and exercise as tolerated, will add lisinopril 20mg, follow up in 1 month Assessment & Plan (11/13/2022 3:20 PM EST): Elevated BP, will incr hydrochlorothiazide to 25 mg qdaily, already has followup with PCP in 2 weeks Assessment & Plan (10/29/2022 3:34 PM EST): Patient reading have been above target, mostly dyastolic results, will start on hydrochlorothiazide 12.5mg, reinforced low sodium diet, which she is not following, and will follow up in 1month Screening for colon cancer 10/29/2022 Assessment & Plan (11/06/2023 7:50 PM EST): Patient now prefers cologuard, will send test, risk vs benefits discussed Assessment & Plan (10/29/2022 3:34 PM EST): Will refer to GI, no bleeding or warning signs Encounters Date Type Department Care Team Description 01/25/2025 3:15 PM EDT Office Visit [facility] [address] [place] [address] Wes Zamora MD Dermoid cyst of skin of back (Primary Dx) 01/25/2025 Travel 01/20/2025 Telephone [facility] [address] [place] [address] Wes Zamora MD Walk-In 01/14/2025 Refill [facility] [address] [place] [address] Davey Bess MD Primary hypertension from Last 3 Months Immunizations Name Administration Dates Next Due Influenza High-dose Quadriva lent Preservative Free 08/19/2023,09/25/2022,09/06/2021 Influenza injectable quadriv alent preservative free 07/29/2019,08/14/2017 Influenza, IIV3, injectable 07/30/2024 Influenza, seasonal, injecta ble, preservative free 08/01/2015 Pneumococcal Conjugate PCV 13 07/29/2019 Pneumococcal Polysaccharide PPSV23 10/04/2015 SARS-CoV-2, Unspecified 07/30/2024 Tdap 10/11/2019 Zoster, live 08/17/2015 Family History Medical History Relation Name Comments HIV Brother No Known Problems Father No Known Problems Mother Relation Name Status Comments Brother Father Mother Social History Tobacco Use Types Packs/Day Years Used Date Smoking Tobacco: Former Cigarettes 0.5 30 Passive Smoke Exposure: Past Smokeless Tobacco: Never Tobacco Cessation:Counseling Given: Not Answered Alcohol Use Standard Drinks/Week Comments Yes 0 [...] the past 12 months, has t he [employer], gas, oil or water company threatened to shut off services in your home? No 08/29/2023 Depression Answer Date Recorded Patient Health Questionnaire-2 Score 0 11/26/2022 Comments Unknown Sex and Gender Information Value Date Recorded Sex Assigned at Female 09/09/2022 10:17 AM EDT Legal Sex Female 10:17 AM EDT Gender Identity Female 09/09/2022 10:17 AM EDT Sexual Orientation Straight 09/09/2022 10 :17 AM EDT Last Filed Vital Signs Vital Sign Reading Time Taken Comments Blood Pressure 110/82 01/25/2025 3:10 PM EDT Pulse 82 01/25/2025 3:10 PM EDT Temperature 36.8 ??C (98.2 ??F) 01/25/2025 3:10 PM ED T Respiratory Rate 20 01/25/2025 3:10 PM EDT Oxygen Saturation 98% 01/25/2025 3:10 PM EDT Inhaled Oxygen Concentration - - Weight 73.2 kg (161 lb 6.4 oz) 01/25/2025 3:10 P M EDT Height 152.4 cm (5') 01/25/2025 3:10 PM EDT Body Mass Index 31.52 01/25/2025 3:10 PM EDT Plan of Treatment Health Maintenance Due Date Last Done Comments CT Colonography 1954 Colonoscopy 1954 Colorectal Cancer Screening 1954 FIT DNA/Cologuard 1954 FIT 1954 FOBT 1954 Sigmoidoscopy 1954 Alcohol/Substance Use Screening 1966 Hepatitis C Screening 01/11/1972 Depression Screening 11/26/2023 11/26/2022, 11/26/19 23 SDOH Screening 11/26/2023 11/26/2022 Mammogram 03/08/2024 03/08/2022, 02/09, 11/25/2019 Pneumococcal Vaccine: 50+ Years (3 of 3 - PCV20 or PCV21) 07/29/2024 07/29/2019, 10/04/2015 Zoster Vaccines (3 of 3) 03/13/2025 01/16/2025, 06/2015 Tobacco Screening 08/11/2025 08/11/2024 Lipid Panel 06/09/2028 06/09/2023, 10/11, 09/04/2021 RSV Patients and Patients Aged 60 years or older (1 - 1-dose 75+ series) 2029 DTaP/Tdap/Td Vaccines (2 - Td or Tdap) 10/11/2029 10/11/2019 COVID-19 Vaccine Completed 07/30/2024, , 03/31/2021, Additional history exists Influenza Vaccine Completed 07/30/2024, , 08/19/2023, Additional history exists HIB Vaccines Aged Out No longer eligi ble based on patient's age to complete this topic HPV Vaccines Aged Out No longer eligi ble based on patient's age to complete this topic Hepatitis A Vaccines Aged Out No long er eligible based on patient's age to complete this topic Hepatitis B Vaccines Aged Out No long er eligible based on patient's age to complete this topic IPV Vaccines Aged Out No longer eligi ble based on patient's age to complete this topic Meningococcal Vaccine Aged Out No anahy rachel eligible based on patient's age to complete this topic RSV under 20 months Aged Out No longe r eligible based on patient's age to complete this topic Rotavirus Vaccines Aged Out No longer eligible based on patient's age to complete this topic Procedures Procedure Name Priority Date/Time Associated Diagnosis Comments LIPID PANEL, STANDARD Routine 06/09/2023 9:45 AM EDT Primary hypertension MAMMOGRAM GENERIC Routine 03/08/2022 9:2 5 AM EDT from Last 3 Months or Most Recently Relevant to Health Maintenance Results * Lipid Panel, Standard (06/09/2023 9:45 AM EDT) Triglycerides 130 mg/dL [facility] Comment:Desirable Triglyceri de: less than 150 mg/dLBorderline High Triglyceride 150-199 mg/dLHigh Triglyceride: 200-499 mg/dLVery High Triglyceride: greater than or equal to 5OO mg/dL Cholesterol 196 mg/dL [facility] Comment:Desirable Cholestero l: less than 200 mg/dLBorderline High Cholesterol: 200-239 mg/dLHigh Cholesterol: greater than 239 mg/dL LDL Cholesterol Calculated 107 mg/dl [facility] Comment:Desirable LDL: less than 100 mg/dLNear Optimal/Above Optimal LDL: 110- 129 mg/dLBorderline High LDL: 130-159 mg/dLHigh LDL: 160-189 mg/dLVery High LDL: greater than or equal to 190 mg/dL HDL Cholesterol 63 mg/dL [facility] Comment:Desirable HDL: great er than 40 mg/dL Note: This HDL assay may give artificially low results in patients with liver disease. Blood Venous blood specimen / Unknown 06/09/2023 9:45 AM EDT 06/09/2023 2:21 PM EDT Wes Peterson MD LAB BLOOD ORDERABL ES Final Result [facility] [address] [place] [phone] * Mammography Report 1 (03/08/2022 9:25 AM EDT) Anatomical Region Laterality Modality Breast Bilateral Mammography 03/08/2022 9:25 AM EDT Narrative 03/20/2022 7:47 AM EDT Refer to the Notes tab for result details [facility] Procedure: Mammography Report 1 Procedure Note ProviderMathew MD - 02/02/2023 Refer to the Notes tab for result details [facility] Procedure: Mammography Report 1 Wes Peterson MD IMG BI PROCEDURES Final Result from Last 3 Months or Most Recently Relevant to Health Maintenance Insurance [address] [place], [place] [facility] STANDARD [employer] MEDICARE REPLACEMENT * Guarantor: Denise Dumont Account Type Relation to Patient Date of Phone Billing Address Personal/Family Self [address] [place], [place] * Guarantor: Denise Dumont Account Type Relation to Patient Date of Phone Billing Address Personal/Family Self [address] [place], [place] Care Teams Housing Manager Relationship Specialty Start Date End Date Wes Zamora MD [address] [place] [address] PCP - General Internal Medicine 07/29/19
--- OUTSIDE RECORDS SUMMARY | 2025-02-09 09:15 | XMS_ITS | Encounter Summary ---
Demographics Address [address] [place] [address] Home Phone Work Phone Mobile Phone Preferred Language en Marital Status Single Islam Affiliation Unknown Race Black or Gin rican Ethnic Group or Author Organization [employer] Address [address] [facility] [address] [place] [address] Care Team Providers Care Interactive Media Specialist Name Role Phone Wes Zamora MD Primary Care Prov ider Encounter Details Date Type Department Care Team (Late st Contact Info) Description 02/19/2024 Telephone [facility] [address] [place] [address] Wes Zamora MD [address] [place] [address] Social History Tobacco Use Types Packs/Day Years [...] documented as of this encounter Care Teams Interactive Media Specialist Relationship Specialty Start Date End Date Wes Zamora MD [address] [place] [address] PCP - General Internal Medicine 07/29/19 documented as of this encounter
--- OUTSIDE RECORDS SUMMARY | 2025-02-09 09:15 | XMS_ITS | Clinical Summary ---
Demographics Address [address] [place] [address] Home Phone Preferred Language Mohawk Marital Status Gnosticist Affiliation Unknown Race Black or Gin rican Ethnic Group Not or Lati no Author Organization [facility] Address [address] [place] [address] Care Team Providers Care Wood Furniture Assembler Name Role Phone IsrraelJordy dang LÓPEZ Primary Care Provider [phone] Source Comments PLEASE NOTE, if this patient is a minor, it may be UNLAWFUL to discuss sensitive information that is contained in these records (such as FAMILY PLANNING, MENTAL HEALTH or SUBSTANCE ABUSE) with the minor patient's parent or other person without the patient's specific authorization.[facility] Allergies No known active allergies Medications Miscellaneous Medical Supply miscIndication s:Metatarsalgi a of both feet by miscellaneous route once daily. Dx: metatarsalgia, disp# one pair of orthotics, no refills. 1 Each 0 6 Active albuterol sulfate 90 mcg/actuation inhalerIndicat ions:Wheezing Inhale 2 Puffs into the lungs every 6 (six) hours as needed for wheezing 8 g 3 7 Active ondansetron (ZOFRAN) 4 mg tabletIndicati ons:Colitis Take 1 Tab by mouth every 8 (eight) hours as needed for nausea 30 Tab 7 Active Active Problems Problem Noted Date Diagnosed Date Colitis 08/14/2017 Smoking 1/2 pack a day or less 09/04/2015 Overview (09/11/2015): Ivette CXR 2014: no acute pulm. Disease. 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 Hx of hysterectomy with oophorectomy 09/04/2015 Overview (09/04/2015): In 2009 Hx of cholecystectomy 09/04/2015 Overview (09/04/2015): In 2009 History of herpes zoster virus vaccination 09/04 Overview (09/04/2015): On 2014 at [facility] Immunizations Immunization Administration Dates Next Due Flu, Preservative Free 08/14/2017 PNEUMOCOCCAL POLYSACCHARIDE PPV23 10/04/2015 Family History Relation Name Status Comments Father Mother Social History Tobacco Use Types Packs/Day Years Used Date Smoking Tobacco: Some Days Cigarettes 0.1 35 Tobacco Cessation:Counseling Given: Yes Alcohol Use Standard Drinks/Week Comments Yes 0 (1 standard drink = 0.6 oz pur e alcohol) socailly Social Connections Answer Date Recorded Social Connections and Isolation 0 07/03/2019 Financial Resource Strain Answer Date R ecorded Financial Resource Strain 0 2018 Stress Answer Date Recorded Stress 0 07/03/2019 Physical Activity Answer Date Recorded Physical Activity 0 07/03/2019 Food Insecurity Answer Date Recorded Food 0 07/03/2019 Transportation Needs Answer Date Record ed Transportation 0 07/03/2019 Housing Stability Answer Date Recorded Housing 0 07/03/2019 Safety and Environment Answer Date Robin rded Safety 0 07/03/2019 Utilities Answer Date Recorded Utilities 0 07/03/2019 Employment Answer Date Recorded Employment 0 07/03/2019 Comments No Sex and Gender Information Value Date Recorded Sex Assigned at Female 08/18/2017 5:30 PM PDT Legal Sex Female 11:46 AM PDT Gender Identity Female 08/18/2017 5:30 PM PDT Sexual Orientation Straight 08/18/2017 5: 30 PM PDT Last Filed Vital Signs Vital Sign Reading Time Taken Comments Blood Pressure 128/82 08/14/2017 10:29 AM EDT Pulse 72 08/14/2017 10:29 AM EDT Temperature 36.8 ??C (98.3 ??F) 08/14/2017 10:29 AM E DT Respiratory Rate 16 08/14/2017 10:29 AM EDT Oxygen Saturation - - Inhaled Oxygen Concentration - - Weight 68 kg (150 lb) 08/14/2017 10:29 AM EDT Height 157.5 cm (5' 2 ) 08/14/2017 10:29 AM EDT Body Mass Index 27.44 08/14/2017 10:29 AM EDT Plan of Treatment Not on file Insurance [facility] Member Subscriber Plan / Payer (Ef fective 2015-Present) Name:Denise Dumont Relation to Subscriber:Self Name:Denise Dumont Payer ID:[id number] Group ID:[id number] Type:Medicaid Address: [facility] [address] [place] [address] Care Teams Wood Furniture Assembler Relationship Specialty Start Date End Date Jordy Doherty NP [address] [place] [address] PCP - General 09/17/18
--- OUTSIDE RECORDS SUMMARY | 2025-02-09 09:15 | XMS_ITS | Clinical Summary ---
Demographics Address [address] [place] [address] Mobile Phone Home Phone Preferred Language en Marital Status Hoahaoism Affiliation Unknown Race Black or Gin rican Ethnic Group Not or Lati no Author Organization [facility] Address [address] [place] [address] Phone Care Team Providers Care Broom Man Name Role Phone Wes Zamora Primary Care Provide r Allergies No known active allergies Medications No known medications Resolved Problems Problem Noted Date Diagnosed Date Resolved Date Cannabis hyperemesis syndrom e concurrent with and due to cannabis dependence 09/13/2024 Gastroenteritis 09/13/2024 09/14/2024 Acute renal failure (ARF) 09/12/2024 Intractable nausea and vomiting 09/12/2024 09/14/2024 Leukocytosis 09/12/2024 09/14/2024 Surgical History Surgery Date Site/Laterality Comments HYSTERECTOMY PROCEDURE: HISTORICAL HYSTERECTOMY SECTION PROCEDURE: [place] DELIVERY ONLY SECTION, LOW TRANSVERSE Medical History Medical History Date Comments Hypertension GERD (gastroesophageal reflux disease) Depression Diverticulitis large intestine Family History Medical History Relation Name Comments Diabetes Maternal Grandmother Relation Name Status Comments Maternal Grandmother Social History Tobacco Use Types Packs/Day Years Used Date Smoking Tobacco: Former Cigarettes Smokeless Tobacco: Never Alcohol Use Standard Drinks/Week Comments Yes 1 (1 standard drink = 0.6 oz pur e alcohol) Interpersonal Safety Answer Date Record ed Physical Abuse 09/13/2024 Verbal Abuse 09/13/2024 Comments No Sex and Gender Information Value Date Recorded Sex Assigned at Not on file Legal Sex Female 10:19 AM EST Gender Identity Not on file Sexual Orientation Choose not to disclose 2023 10:36 AM EST Obstetrics History Last Filed Vital Signs Vital Sign Reading Time Taken Comments Blood Pressure 121/71 09/14/2024 7:40 AM EST Pulse 72 09/14/2024 7:40 AM EST Temperature 36.3 ??C (97.3 ??F) 09/14/2024 7:40 AM ES T Respiratory Rate 17 09/14/2024 7:40 AM EST Oxygen Saturation 97% 09/14/2024 7:40 AM EST Inhaled Oxygen Concentration - - Weight 65.8 kg (145 lb) 09/11/2024 8:06 PM EDT Height 157.5 cm (5' 2.01 ) 09/14/2024 7:40 AM ES T Body Mass Index 26.51 09/11/2024 8:06 PM EDT Plan of Treatment Health Maintenance Due Date Last Done Comments Zoster Vaccines (2 of 3) 10/12/2015 08/17/2015 Colorectal Cancer Screening: Colonoscopy 10/13/2022 Hepatitis C Screening 10/13/2022 Osteoporosis Screening (Bone Density Screening) 10/13/2022 Social Influencers of Health Screening 10/13/2022 Depression Screening 11/26/2023 11/26/2022 Breast Cancer Screening 03/08/2024 03/08/2022 Pneumococcal Vaccine: 50+ Years (3 of 3 - PCV20 or PCV21) 07/29/2024 07/29/2019, 10/04/2015 Falls Risk Assessment 09/14/2025 09/14/2024 Hypertension/CHF/CAD Annual BMP Blood Test 09/14/2025 09/14/2024, 09/12/2024, 09/11/2024, Additional history exists Cholesterol Screening (Lipid Panel) 06/09/2028 06/09/2023 RSV Immunization Adult Patients (1 - 1-dose 75+ series) 2029 DTaP,Tdap,and Td Vaccines (2 - Td or Tdap) 10/11/2029 10/11/2019 COVID-19 Vaccine Completed 07/30/2024, , 03/31/2021, Additional history exists Influenza Vaccine Completed 07/30/2024, , 09/25/2022, Additional history exists HIB Vaccines Aged Out [...] on patient's age to complete this topic MMR Vaccines Aged Out No longer eligi ble based on patient's age to complete this topic Meningococcal ACWY Vaccine Aged Out N o longer eligible based on patient's age to complete this topic Meningococcal B Vacine Aged Out No lo nger eligible based on patient's age to complete this topic RSV Immunization Patients Under 20 months Aged Out No longer eligible based on patient's age to complete this topic Varicella Vaccines Aged Out No longer eligible based on patient's age to complete this topic Procedures Procedure Name Priority Date/Time Associated Diagnosis Comments BASIC METABOLIC PANEL Routine 09/14/2024 5:23 AM EST from Last 3 Months or Most Recently Relevant to Health Maintenance Results * (ABNORMAL) Basic metabolic panel (09/14/2024 5:23 AM EST) Sodium 140 133 - 145 mmol/L LAB CHEMISTRY METHOD 09/14/2024 8:05 AM [facility] Potassium 3.7 3.5 - 5.5 mmol/L LAB CHEMISTRY METHOD 09/14/2024 8:05 AM [facility] Chloride 103 96 - 110 mmol/L LAB CHEMISTRY METHOD 09/14/2024 8:05 AM [facility] CO2 27 21 - 32 mmol/L LAB CHEMISTRY METHOD 09/14/2024 8:05 AM [facility] Anion Gap 10 3 - 11 LAB CHEMISTRY METHOD 09/14/2024 8:05 AM [facility] Glucose 110(H) 70 - 100 mg/dL LAB CHEMISTRY METHOD 09/14/2024 8:05 AM [facility] BUN 12 5 - 25 mg/dL LAB CHEMISTRY METHOD 09/14/2024 8:05 AM [facility] Creatinine 0.95 0.50 - 1.10 mg/dL LAB CHEMISTRY METHOD 09/14/2024 8:05 AM EST [facility] eGFR 65 >=60 mL/min/1. 73m2 LAB CHEMISTRY METHOD 09/14/2024 8:05 AM EST [facility] Comment:Calculation based on the??Chronic Kidney Disease Epidemiology Collaboration (CKD-EPI) equation refit??without adjustment for race. BUN/Creatinine Ratio 12.6 LAB CHEMISTRY METHOD 09/14/2024 8:05 AM EST [facility] Calcium 9.7 8.5 - 10.5 mg/dL LAB CHEMISTRY METHOD 09/14/2024 8:05 AM EST [facility] Blood Venous blood specimen / Unknown Venipuncture / Unknown 09/14/2024 5:23 AM EST 09/14/2024 6:47 AM EST us Jordy Maher MD LAB BLOOD ORDERABLES Final Re sult [facility] [address] [place] [address], [place] [phone] from Last 3 Months or Most Recently Relevant to Health Maintenance Insurance * Guarantor: Denise Dumont Account Type Relation to Patient Date of Phone Billing Address Personal/Family Self 1955 [address] [place] [address] MEDICA[place] AET[place] Advance Directives * Full Code - Default (Latest Code Status on File) Date Activated Date Inactivated Comments 09/12/2024 7:54 AM 09/14/2024 3:08 PM This is orde r is used when code status has not been discussed with the patient, or code status is otherwise unknown/unconfirmed To update the patient's code status, place a code status order. Do not modify or discontinue any currently active code status orders. Care Teams Broom Man Relationship Specialty Start Date End Date Wes Zamora: [id number] [address] [place] [address] PCP - General Internal Medicine 09/12/24
--- OUTSIDE RECORDS SUMMARY | 2025-02-09 09:15 | XMS_ITS | Encounter Summary ---
Demographics Address [address] [place] [address] Home Phone Work Phone Mobile Phone Preferred Language en Marital Status Single Samaritan Affiliation Unknown Race Black or Gin rican Ethnic Group or Author Organization [employer] Address [address] [facility] [address] [place] [address] Care Team Providers Care Case Reviewer Name Role Phone Wes Zamora MD Primary Care Prov ider Reason for Visit * Reason Onset Date Comments Medication Question 09/09/2023 Encounter Details Date Type Department Care Team ([facility] st Contact Info) Description 09/09/2023 Telephone [facility] [address] [place] [address] Wes Zamora MD [address] [place] [address] Medication Question Social History Tobacco Use Types [...] encounter Miscellaneous Notes * Telephone Encounter - Sierra Peters RN - 09/10/2023 3:21 PM EDT Images from the original note were not included. Incoming message from provider- MD Regulo Guanyoke [facility] P[facility] Nurses Caller: Unspecified (Yesterday, 9:29 AM) No antibiotics prescribed as pt had a viral infection. I prescribed Flovent and Chlorthalidone for her BP. Ms Denise Dumont will need to follow up w/ her PCP as scheduled and 3 to 4 weeks. Pt advised to use cough drops in between cough medicine doses, pain reliever for sore throat from coughing and to incorporate steam into her sinus. Pt verbalized understanding and agrees to plan. FYI- pt is scheduled for a f/u with you. * Telephone Encounter - John Vasquez RN - 09/10/2023 11:55 AM EDT Please see message below. Pt was seen on 09/08/23. Pt state antibiotics were going to be prescribedfor bronchitis but were not sent to the pharmacy. No mention of antibiotic being prescribed in the office note. Please review and advise. Thanks. * Telephone Encounter - Kyle Delgado - 09/09/2023 9:29 AM EDT Tc from patient calling in regards of antibiotics medication for bronchitis states was in the [facility] yesterday and was told that she was going to be on antibiotics. Please call [phone] documented in this encounter Plan of Treatment Not on file documented as of this encounter Visit Diagnoses Not on filedocumented in this encounter Additional Health Concerns Assessment Noted Time PHQ-9 Depression Total Score: 0 11/26/19 23 8:50 AM EST documented as of this encounter Care Teams Case Reviewer Relationship Specialty Start Date End Date Wes Zamora MD [address] [place] [address] PCP - General Internal Medicine 07/29/19 documented as of this encounter
--- OUTSIDE RECORDS SUMMARY | 2025-02-09 09:15 | XMS_ITS | Encounter Summary ---
Demographics Address [address] [place] [address] Home Phone Work Phone Mobile Phone Preferred Language en Marital Status Single Anabaptist Affiliation Unknown Race Black or Gin rican Ethnic Group or Author Organization [employer] Address [address] [facility] [address] [place] [address] Care Team Providers Care Twisting Frame Operator Name Role Phone eWs Zamora MD Primary Care Prov ider Encounter Details Date Type Department Care Team (Latest Contact Info) Description 11/30/2019 Abstract [facility] CONVERSIONS Dental, Provider, DDS Social History Tobacco Use Types Packs/Day Years Used Date Smoking Tobacco: Never Assessed Comments Unknown Sex and Gender Information Value Date Recorded Sex Assigned at Female 09/09/2022 10:17 AM EDT Legal Sex Female 10:17 AM EDT Gender Identity Female 09/09/2022 10:17 AM EDT Sexual Orientation Straight 09/09/2022 10 :17 AM EDT documented as of this encounter Plan of Treatment Not on file documented as of this encounter Visit Diagnoses Not on filedocumented in this encounter Care Teams Twisting Frame Operator Relationship Specialty Start Date End Date Wes Zamora MD [address] [place] [address] PCP - General Internal Medicine 07/29/19 documented as of this encounter
--- OUTSIDE RECORDS SUMMARY | 2025-02-09 09:15 | XMS_ITS | Encounter Summary ---
Demographics Address [address] [place] [address] Home Phone Work Phone Mobile Phone Preferred Language en Marital Status Single Gnosticist Affiliation Unknown Race Black or Gin rican Ethnic Group or Author Organization [employer] Address [address] [facility] [address] [place] [address] Care Team Providers Care Whipped Topping Mixer Name Role Phone Wes Zamora MD Primary Care Prov ider Reason for Visit * Reason Comments Med Refill Encounter Details Date Type Department Care Team ([facility] Contact Info) Description 09/15/2024 Refill [facility] [address] [place] [address] Davey Bess MD [address] [place] [address] Primary hypertension Social History Tobacco Use Types [...] documented as of this encounter Care Teams Whipped Topping Mixer Relationship Specialty Start Date End Date Wes Zamora MD [address] [place] [address] PCP - General Internal Medicine 07/29/19 documented as of this encounter
== END 2025-02-09 08:59 | disposition home or self-care (01) ==
LOC: HO.HGS 08:44
PROVIDERS: PCP Internal Medicine; Visit Provider Surgery
DX: L72.3 Sebaceous cyst (principal)
CPT/HCPCS: 99204

== ENCOUNTER → 2025-02-09 08:43 | Outpatient (BNVA) | payer MEDICARE, MEDICAID, SELFPAY | PROVIDERS: PCP Internal Medicine; Visit Provider Surgery | DX: L72.3 Sebaceous cyst (principal) | CPT/HCPCS: 99202 ==

== ENCOUNTER 2025-03-11 06:08 | Day surgery (SDC) | payer MEDICARE, MEDICAID, SELFPAY ==
[2025-02-24 13:02] VITALS: BMI 30.2
--- OUTSIDE RECORDS SUMMARY | 2025-02-24 13:25 | XMS_ITS | Clinical Summary ---
Demographics Address [address] [place] [address] Home Phone Preferred Language Chadian Marital Status Gnosticist Affiliation Unknown Race Black or Gin rican Ethnic Group Not or Lati no Author Organization [facility] Address [address] [place] [address] Care Team Providers Care Road Roller Operator Name Role Phone IsrraelJordy dang LÓPEZ Primary Care Provider [phone] Source Comments PLEASE NOTE, if this patient [...] vaccination 09/04 Overview (09/04/2015): On 2014 at [facility] Immunizations Immunization Administration Dates Next Due Flu, [...] Plan of Treatment Not on file Insurance [facility] Member Subscriber Plan / Payer (Ef fective 2015-Present) Name:Denise Dumont Relation to Subscriber:Self Name:Denise Dumont Payer ID:[id number] Group ID:[id number] Type:Medicaid Address: [facility] [address] [place] [address] Roller Operator Relationship Specialty Start Date End Date Jordy Doherty NP [address] [place] [address] PCP - General 09/17/18
--- OUTSIDE RECORDS SUMMARY | 2025-02-24 13:25 | XMS_ITS | Clinical Summary ---
Demographics Address [address] [place] [address] Mobile Phone Home Phone Preferred Language en Marital Status Baptist Affiliation Unknown Race Black or Gin rican Ethnic Group Not or Lati no Author Organization [facility] Address [address] [place] [address] Phone Care Team Providers Care Aluminum Boats Assembler Name Role Phone Wes Zamora Primary Care Provide r Allergies No known active allergies Medications No known medications Resolved Problems Problem Noted Date Diagnosed Date Resolved Date Cannabis hyperemesis syndrom e concurrent with and due to cannabis dependence ([facility] V24, [facility] V28) 09/13/2024 09/14/2024 Gastroenteritis 09/13/2024 09/14/2024 Acute renal failure (ARF) ([facility] V24) 09/12/2024 09/14/2024 Intractable nausea and vomiting 09/12/2024 09/14/2024 Leukocytosis 09/12/2024 09/14/2024 Surgical History Surgery Date Site/Laterality Comments HYSTERECTOMY PROCEDURE: HISTORICAL HYSTERECTOMY SECTION PROCEDURE: [place] DELIVERY ONLY SECTION, LOW TRANSVERSE Medical History [...] age to complete this topic Meningococcal B Vaccine Aged Out No l onger eligible based on patient's age to complete [...] mmol/L LAB CHEMISTRY METHOD 09/14/2024 8:05 AM [facility] Potassium 3.7 3.5 - 5.5 mmol/L LAB CHEMISTRY METHOD 09/14/2024 8:05 AM [facility] Chloride 103 96 - 110 mmol/L LAB CHEMISTRY METHOD 09/14/2024 8:05 AM [facility] CO2 27 21 - 32 mmol/L LAB CHEMISTRY METHOD 09/14/2024 8:05 AM [facility] Anion Gap 10 3 - 11 LAB CHEMISTRY METHOD 09/14/2024 8:05 AM [facility] Glucose 110(H) 70 - 100 mg/dL LAB CHEMISTRY METHOD 09/14/2024 8:05 AM [facility] BUN 12 5 - 25 mg/dL LAB CHEMISTRY METHOD 09/14/2024 8:05 AM [facility] Creatinine 0.95 0.50 - 1.10 mg/dL LAB CHEMISTRY METHOD 09/14/2024 8:05 AM EST [facility] eGFR 65 >=60 mL/min/1. 73m2 LAB CHEMISTRY METHOD 09/14/2024 8:05 AM EST [facility] Comment:Calculation based on the??Chronic Kidney Disease Epidemiology Collaboration (CKD-EPI) equation refit??without adjustment for race. BUN/Creatinine Ratio 12.6 LAB CHEMISTRY METHOD 09/14/2024 8:05 AM [facility] Calcium 9.7 8.5 - 10.5 mg/dL LAB CHEMISTRY METHOD 09/14/2024 8:05 AM [facility] Blood Venous blood specimen / Unknown Venipuncture / Unknown 09/14/2024 5:23 AM EST 09/14/2024 6:47 AM EST Jordy Maher MD LAB BLOOD ORDERABLES Final Re sult [facility] [address] [place] [address], from Last 3 Months or Most Recently Relevant to Health Maintenance Insurance * Guarantor: Denise Dumont Account Type Relation to Patient Date of Phone Billing Address Personal/Family Self 1955 [address] [place] [address] [place] AET[place] Advance Directives * [...] currently active code status orders. Care Teams Aluminum Boats Assembler Relationship Specialty Start Date End Date Wes Zamora [address] [place] [address] PCP - General Internal Medicine 09/12/24
--- NOTE | 2025-03-09 12:57 | P.CONAN_ITS ---
Documented by User: Crissy Hurst NP 03/09/25 12:57 HPI - Anesthesia Eval Consult details Narrative: 70yo F for Left Wide Local Excision Back Mass PMFSH Active Problems Active Problems: All Active Problems Sebaceous cyst (Acute) Macrocytosis (Acute) Abdominal pain (Acute) Nausea and vomiting (Acute) Hematochezia (Acute) Diverticulitis (Acute) Depression with anxiety (Acute) Past Medical History Medical History Hx of hypokalemia Arthritis Hypertension Diverticulitis Depression with anxiety Surgical History Surgical History Hx of section History of colonoscopy History of hysterectomy Social History Social History (Updated 02/24/25 @ 11:05 by Colleen Torres RN) Household Members: None Housing: Apartment Are you a primary insurance healthcare consultant to a significant other at home: No Do you presently have visiting nurse or other home services: No Patient Tobacco Use Status: Former Tobacco user Tobacco use type: Cigarette Use of substances other than those prescribed or required for medical reasons: Yes Substance Use Type: Marijuana Substance Use Frequency: Daily Have you been hit, kicked, punched, or otherwise hurt by someone within the past year? If so, by whom?: No Are you DNR?: No Advance Directives: No Advance Directives Information Provided: Yes Advance Directives on File: No Poor oral hygiene: No Meds Allergies Allergy/AdvReac Type Severity Reaction Status Date / Time latex Allergy Rash Verified 03/11/25 06:52 Home Medications ?Medication ?Instructions ?Recorded ?Confirmed ?Last Taken ?Type amlodipine 5 mg tablet 5 mg PO DAILY 02/24/25 03/11/25 03/11/25 History Exam Height,Weight and Vital Signs: Height 5 ft 1 in Weight 72.575 kg Assessment and Plan Assessment Anesthesia Assessment: Chart Reviewed Documented by User: Hesham Garcia MD 03/11/25 08:19 PMF Past Medical History Medical History Hx of hypokalemia Arthritis Hypertension Diverticulitis Depression with anxiety Family History Family history of problems with anesthesia: No Surgical History Surgical History Hx of section History of colonoscopy History of hysterectomy History of Problems with Anesthesia: No Social History Social History (Updated 02/24/25 @ 11:05 by Colleen Torres RN) Household Members: None Housing: Apartment Are you a primary insurance healthcare consultant to a significant other at home: No Do you presently have visiting nurse or other home services: No Patient Tobacco Use Status: Former Tobacco user Tobacco use type: Cigarette Use of substances other than those prescribed or required for medical reasons: Yes Substance Use Type: Marijuana Substance Use Frequency: Daily Have you been hit, kicked, punched, or otherwise hurt by someone within the past year? If so, by whom?: No Are you DNR?: No Advance Directives: No Advance Directives Information Provided: Yes Advance Directives on File: No Poor oral hygiene: No Meds Allergies Allergy/AdvReac Type Severity Reaction Status Date / Time latex Allergy Rash Verified 03/11/25 06:52 Home Medications ?Medication ?Instructions ?Recorded ?Confirmed ?Last Taken ?Type amlodipine 5 mg tablet 5 mg PO DAILY 02/24/25 03/11/25 03/11/25 History Exam Airway Mallampati Class: II TM Dist: >3cm Neck ROM: Full Loose/Missing/Broken Teeth: Yes and Upper Assessment and Plan Assessment Anesthesia Assessment: Anesthesia Plan Discussed Final Anesthetic Review Family History of Problems with Anesthesia: No History of Problems with Anesthesia: No NPO: Yes ASA Class: II Final Preanesthetic Review: No Changes in Pt Med Stat, Meds/Allgs Chart Reviewed, Consent Obtained/Reviewed, Anes Risks/Benef Reviewed and DNR Form (If Appl.) Patient Risk: Low Procedure Risk: Low Anesthetic Plan Anesthetic Plan: MAC: Disposition: Standard PACU
[2025-03-11 07:06] VITALS: BP 131/71; PULSE 61; RESP 14; TEMP 36.6; O2SAT 98
[2025-03-11] MEDS: Lactated Ringers 1,000 ML 100 ML IVCONT (07:27)
--- NOTE | 2025-03-11 08:58 | MHC.SHP ---
Pre-Procedural Eval Section A - 24 Hr Update-Section A only Date of Service: 03/11/25 The patient is an INPATIENT: No Changes since office visit: Yes Patient answered all questions; No Cold of Flu in the past 2 weeks, No New Medical Problems and No Changes in Medication The patient has been examined within 24 hours of the surgical procedure. The History & Physical has been completed within 30 days and I have reviewed it.: No Section B - Complete if H&P > 30 days Chief Complaint: Sebaceous cyst Details of Present Illness: Patient denies any current pain, bleeding or discharge from the site. The site has not changed significantly since her previous examination. Relevant Family History (Specify if Yes): No Relevant Social History: Other (specify) (Marijuana) Present Medications: see Short Stay Collaborative assessment Medical History: Significant History (Macrocytosis, diverticulitis) History of Previous Operations: No relevant previous surgery Allergies: Allergies Allergy/AdvReac Type Severity Reaction Status Date / Time latex Allergy Rash Verified 03/11/25 06:52 Review of Systems Sugical H&P ROS: Negative: Constitution, Cardiovascular, Respiratory, Neurological, Psychiatric, Hem-Onc, Allergic/Immunologic, Gastrointestinal, Genitourinary and Musculoskeletal and Yes, Specify: Integumentary (Sebaceous cyst left upper back, 3 cm diameter) Exam Surgical H&P Exam: Normal: HEENT, Normal: Heart, Normal: Lungs, Normal: Extremities and Normal: Abdomen and Significant Findings: Skin (3 cm sebaceous cyst with an open comedone appearance left upper back) Plan Diagnosis/Plan: Unchanged I have reviewed the history and physical and performed a pertinent physical examination on my patient. No changes have occurred unless specified. I reviewed the procedure, risks, and alternatives in detail with the patient and she consents to excision of the left upper back sebaceous cyst (mass). Time Spent With Patient Time: Total time managing care of this patient today ____ minutes.
[2025-03-11 10:07] VITALS: BP 113/77; PULSE 57; RESP 16; TEMP 36.6; O2SAT 97
[2025-03-11 10:10] VITALS: BP 114/72; PULSE 42; RESP 16; O2SAT 100
--- NOTE | 2025-03-11 10:11 | P.OP_ITS ---
Operative Note Operative Note Date of Service: 03/11/25 Narrative: Preoperative diagnosis: Sebaceous cyst of the upper left back Postoperative diagnosis: Same Procedure: Excision of sebaceous cyst of upper left back Surgeon: Jeff Ricks MD Discharge Door Operator: Jordy Guajardo PA-C Anesthesia:MAC Indications for procedure: 70-year-old female patient presenting with a large sebaceous cyst of the back measuring approximately 3.5 cm in diameter with an open comedone. No evidence of infection at this time. Operative findings: 3.5 cm sebaceous cyst of upper left back Specimen: Sebaceous cyst of her left back Estimated blood loss: Less than 2 mL Complications: None Procedure details: Patient was brought to the OR and placed in a supine position. He was then placed in a right lateral decubitus position. After administering sedation, her left upper back was prepped with ChloraPrep and draped in a sterile fashion. A surgical time-out was called the consent confirmed. Patient received preoperative antibiotics and Venodyne boots were in place. Local anesthesia was then infiltrated circumferentially around the cyst. An elliptical incision oriented obliquely was then created with a scalpel. This was carried out through subcutaneous tissue and around the cyst wall. Sharp dissection was used to excise the cyst from the surrounding subcutaneous tissue. The cyst was passed off the table and sent to pathology for further examination. Dermis was then reapproximated using interrupted 3-0 Polysorb sutures. Skin was closed using interrupted 3-0 nylon sutures. Sterile dressing consisting of 4 x 4 gauze and Tegaderm were then applied. The patient tolerated the procedure well. Sponge, instrument, and needle counts were reported as correct. The patient was transferred to PACU in stable condition.
[2025-03-11 10:15] VITALS: BP 116/72; PULSE 42; RESP 16; O2SAT 100
[2025-03-11 10:20] VITALS: BP 114/79; PULSE 44; RESP 16; O2SAT 98
[2025-03-11 10:30] VITALS: BP 130/89; PULSE 48; RESP 16; TEMP 36.6; O2SAT 97
== END 2025-03-11 11:08 | disposition home or self-care (01) ==
PROVIDERS: PCP Internal Medicine; Visit Provider Surgery
PROC: (CPT 11404; principal; 2025-03-11 09:20)
DX: L72.3 Sebaceous cyst (principal); I10 Essential (primary) hypertension; F41.8 Other specified anxiety disorders; Z87.19 Personal history of other diseases of the digestive system
CPT/HCPCS: 11404; 88304; J0690; J2003; J2371; J2704; J3010

== ENCOUNTER → 2025-03-11 06:08 | Outpatient (BNV) | payer MEDICARE, MEDICAID, SELFPAY | PROVIDERS: PCP Internal Medicine; Visit Provider Surgery | DX: L72.0 Epidermal cyst (principal) | CPT/HCPCS: 11404 ==

== ENCOUNTER 2025-03-22 11:23 | Outpatient (AMB) | payer MEDICARE, MEDICAID, SELFPAY ==
[2025-03-22 11:27] VITALS: BP 143/68; PULSE 55; TEMP 36.4; O2SAT 97; BMI 31.6
--- NOTE | 2025-03-22 11:27 | A.OFFVIS_ITS ---
Vital Signs 03/22/25 11:27 Height 5 ft 1 in Weight 167 lb 2 oz BMI 31.6 BP 143/68 H Blood Pressure Location Rt brachial Position Sitting Pulse 55 Pulse Source Pulse Oximeter Temp 97.6 F Temp Source Tympanic Pulse Oximetry (%) 97 Oxygen Delivery Method Room Air Intake Visit Reasons: s/p WLE Lt back mass Intake Note: Patient presents post-up. Allergies latex Allergy (Verified 03/22/25 11:33) Rash HPI Comments Details: Patient presents for follow up after her excision of sebaceous cyst of upper left back on 03/11/[address] Ricks. She tolerated the procedure well. She took oxycodone for a few days post operatively but has not needed further analgesics. She is eating and moving her bowels without difficulty. She has no concerns. [facility] Medical History Hx of hypokalemia Arthritis Hypertension Diverticulitis Depression with anxiety Surgical History Hx of section History of colonoscopy History of hysterectomy Social History Household Members: None Housing: Apartment Are you a primary career technical education teacher to a significant other at home: No Do you presently have visiting nurse or other home services: No Patient Tobacco Use Status: Former Tobacco user Tobacco use type: Cigarette Substance Use Type: Marijuana Review of Systems Const Denies chills and Denies fever(s) ENT Denies dizziness Card Denies dyspnea Resp Denies dyspnea GI Denies nausea and Denies vomiting Skin/Breast Denies rash Neuro Denies dizziness Physical Exam Vital Signs: Last Vital Signs Temp 97.6 F 03/22/25 11:27 Pulse 55 03/22/25 11:27 BP 143/68 H 03/22/25 11:27 Pulse Ox 97 03/22/25 11:27 Oxygen Delivery Method Room Air 03/22/25 11:27 BMI result Body Mass Index 31.6 Const General: comfortable, no acute distress and alert Orientation/consciousness: patient oriented x3 Resp Effort & Inspection: normal respiratory effort Skin Other: left upper back incision healing well and well approximated with nylon sutures in place and all were removed, no surrounding erythema or edema, no drainage noted small separation of medial aspect of incision upon suture removal and steris applied Neuro General: patient oriented x3 and moves all extremities Results Reviewed Results Reviewed: Skin, left back, excision: Epidermal inclusion cyst Assessment & Plan Assessment & Plan (1) Encounter for postoperative wound check: Code(s): Z48.89 - Encounter for other specified surgical aftercare Category: Medical Plan 70 year old female s/p excision of sebaceous cyst of upper left back on 03/11/25. She tolerated the procedure well. Her wound is healing well, all nylon sutures were removed. There was a small separation of the medial aspect with the sutures removed. Steri strips were therefore applied. Instructed to remove the steri strips in 1 week if they have not fallen off yet. Overall doing well and she can return to the office as needed with concerns. Coding Level of Care Code Global (00276) Diagnoses Encounter for postoperative wound check Z48.89
--- OUTSIDE RECORDS SUMMARY | 2025-03-22 12:53 | XMS_ITS | Encounter Summary ---
Demographics Address [address] [place] [address] Home Phone Work Phone Mobile Phone Preferred Language en Marital Status Single Christianity Affiliation Unknown Race Black or Gin rican Ethnic Group Unknown Author Organization [employer] Address [address] [place] [address] Care Team Providers Care Obstetrics Scrub Nurse Name Role Phone Wes Zamora MD Primary Care Prov ider Encounter Details Date Type Department Care Team (Late st Contact Info) Description 09/14/2024 Orders Only [facility] [address] [place] [address] ProviderMathew MD Social History Tobacco Use Types [...] documented as of this encounter Care Teams Obstetrics Scrub Nurse Relationship Specialty Start Date End Date Wes Zamora MD [address] [place] [id number] PCP - General Internal Medicine 07/29/19 documented as of this encounter
--- OUTSIDE RECORDS SUMMARY | 2025-03-22 12:53 | XMS_ITS | Clinical Summary ---
Demographics Address [address] [place] [address] Home Phone Preferred Language [place] Marital Status Jewish Affiliation Unknown Race Black or Gin rican Ethnic Group Not or Lati no Author Organization [facility] Address [address] [place] [address] Care Team Providers Care Features Reporter Name Role Phone IsrraelJordy dang LÓPEZ Primary Care Provider Source Comments PLEASE NOTE, if this patient [...] vaccination 09/04 Overview (09/04/2015): On 2014 at [facility] Immunizations Immunization Administration Dates Next Due Flu, Preservative Free 08/14/2017 PNEUMOCOCCAL POLYSACCHARIDE PPV23 (Pneumovax 23) 10/04/2015 Family History Relation Name Status Comments [...] Plan of Treatment Not on file Insurance [facility] PL[facility] Member Subscriber Plan / Payer (Ef fective 2015-Present) Name:Denise Dumont Relation to Subscriber:Self Name:Denise Dumont Payer ID:[id number] Group ID:[id number] Type:Medicaid Address: [facility] [address] [place] [address] Care Teams Features Reporter Relationship Specialty Start Date End Date Jordy Doherty NP [address] [place] [address] PCP - General 09/17/18
--- OUTSIDE RECORDS SUMMARY | 2025-03-22 12:53 | XMS_ITS | Encounter Summary ---
Demographics Address [address] [place] [address] Home Phone Work Phone Mobile Phone Preferred Language en Marital Status Single Religion Affiliation Unknown Race Black or Gin rican Ethnic Group Unknown Author Organization [employer] Address [address] [facility] [address] [place] [address] Care Team Providers Care Stab Setter And Driller Name Role Phone Wes Zamora MD Primary Care Prov ider Reason for Visit * Reason Onset Date Comments Medication Question 09/09/2023 Encounter Details Date Type Department Care Team ([facility] Contact Info) Description 09/09/2023 Telephone [facility] [address] [place] [address] Wes Zamora MD [address] [place], [place] [phone] Medication Question Social History Tobacco Use Types [...] Incoming message from provider- MD Regulo Gu[place]oke [facility] P[facility] Nurses Caller: Unspecified (Yesterday, [...] medication for bronchitis states was in the [facility] yesterday and was told that she was going to be on antibiotics. Please call [phone] documented in this encounter Plan of Treatment Not on file documented as of this encounter Visit Diagnoses Not on filedocumented in this encounter Additional Health Concerns Assessment Noted Time PHQ-9 Depression Total Score: 0 11/26/19 23 8:50 AM EST documented as of this encounter Care Teams Stab Setter And Driller Relationship Specialty Start Date End Date Wes Zamora MD [address] [place] [id number] PCP - General Internal Medicine 07/29/19 documented as of this encounter
--- OUTSIDE RECORDS SUMMARY | 2025-03-22 12:53 | XMS_ITS | Encounter Summary ---
Demographics Address [address] [place] [address] Home Phone Work Phone Mobile Phone Preferred Language en Marital Status Single Rastafarian Affiliation Unknown Race Black or Gin rican Ethnic Group Unknown Author Organization [employer] Address [address] [facility] [facility] [address] [place] [address] Care Team Providers Care Chipper Machine Operator Name Role Phone Wes Zamora MD Primary Care Prov ider Reason for Visit * Reason Comments Med Refill Encounter Details Date Type Department Care Team ([facility] st Contact Info) Description 09/15/2024 Refill [facility] MED & PEDS [address] [place] [address] Davey Bess MD [address] [place] [address] Primary hypertension Social History Tobacco Use Types [...] documented as of this encounter Care Teams Chipper Machine Operator Relationship Specialty Start Date End Date Wes Zamora MD [address] [place] [id number] PCP - General Internal Medicine 07/29/19 documented as of this encounter
--- OUTSIDE RECORDS SUMMARY | 2025-03-22 12:54 | XMS_ITS | Encounter Summary ---
Demographics Address [address] [place] [address] Home Phone Work Phone Mobile Phone Preferred Language en Marital Status Single Amish Affiliation Unknown Race Black or Gin rican Ethnic Group Unknown Author Organization [employer] Address [address] [facility] [address] [facility] [address] [place] [address] Care Team Providers Care Instructional Facilitator Name Role Phone Wes Zamora MD Primary Care Prov ider Reason for Visit * Reason Comments Med Refill Encounter Details Date Type Department Care Team ([facility] st Contact Info) Description 12/22/2022 Refill [facility] MED & PEDS [address] [place] [address] Wes Zamora MD [address] [place] [address] Primary hypertension Social History Tobacco Use Types [...] documented as of this encounter Care Teams Instructional Facilitator Relationship Specialty Start Date End Date Wes Zamora MD [address] [place] [phone] PCP - General Internal Medicine 07/29/19 documented as of this encounter
--- OUTSIDE RECORDS SUMMARY | 2025-03-22 12:54 | XMS_ITS | Encounter Summary ---
Demographics Address [address] [place] [address] Home Phone Work Phone Mobile Phone Preferred Language en Marital Status Single Spiritism Affiliation Unknown Race Black or Gin rican Ethnic Group Unknown Author Organization [employer] Address [address] [facility] [address] [place] [address] Care Team Providers Care Body Cleaner Name Role Phone Wes Zamora MD Primary Care Prov ider Reason for Visit * Reason Onset Date Comments Nurse Triage 02/10/2024 Encounter Details Date Type Department Care Team ([facility] st Contact Info) Description 02/10/2024 Telephone [facility] [address] [place] [address] Wes Zamora MD [address] [place], [place] [phone] Nurse Triage Social History Tobacco Use Types [...] Neg for fever. Pt was seen in [facility] Ed last week 02/06/24 for vomiting and dehydration and that has resolved . Pt did receive IV hydration in Ed. A[facility] today at 1020am. Insurance is verified [...] documented as of this encounter Care Teams Body Cleaner Relationship Specialty Start Date End Date Wes Zamora MD [address] [place] [id number] PCP - General Internal Medicine 07/29/19 documented as of this encounter
--- OUTSIDE RECORDS SUMMARY | 2025-03-22 12:54 | XMS_ITS | Encounter Summary ---
Demographics Address [address] [place] [address] Home Phone Work Phone Mobile Phone Preferred Language en Marital Status Single Mandaen Affiliation Unknown Race Black or Gin rican Ethnic Group Unknown Author Organization [employer] Address [address] [place] [address] Care Team Providers Care Machinist Helper Name Role Phone Wes Zamora MD Primary Care Prov ider Encounter Details Date Type Department Care Team (Late st Contact Info) Description 02/19/2024 Telephone [facility] MED & PEDS [address] [place] [address] Wes Zamora MD [address] [place] [address] Social History Tobacco Use Types Packs/Day Years [...] documented as of this encounter Care Teams Machinist Helper Relationship Specialty Start Date End Date Wes Zamora MD [address] [place] [id number] PCP - General Internal Medicine 07/29/19 documented as of this encounter
--- OUTSIDE RECORDS SUMMARY | 2025-03-22 12:54 | XMS_ITS | Encounter Summary ---
Demographics Address [address] [place] [address] Home Phone Work Phone Mobile Phone Preferred Language en Marital Status Single Confucianism Affiliation Unknown Race Black or Gin rican Ethnic Group Unknown Author Organization [employer] Address [address] [facility] [address] [place] [address] Care Team Providers Care Concert Manager Name Role Phone Wes Zamora MD Primary Care Prov ider Reason for Visit * Reason Onset Date Comments Medication Question 03/22/2024 Encounter Details Date Type Department Care Team ([facility] Contact Info) Description 03/22/2024 Telephone [facility] MEDICINE [address] [place] [address] Wes Zamora MD [address] [place], [place] [phone] Medication Question Social History Tobacco Use Types [...] unsure on exact name). Pt attempted to filler picker medication at pharmacy in which pharmacy informed pt nothing was sent. Please contact pt at [phone]. documented in this encounter Plan of Treatment Not on file documented as of this encounter Visit Diagnoses Not on filedocumented in this encounter Additional Health Concerns Assessment Noted Time PHQ-9 Depression Total Score: 0 11/26/19 23 8:50 AM EST documented as of this encounter Care Teams Concert Manager Relationship Specialty Start Date End Date Wes Zamora MD [address] [place] [id number] PCP - General Internal Medicine 07/29/19 documented as of this encounter
--- OUTSIDE RECORDS SUMMARY | 2025-03-22 12:54 | XMS_ITS | Clinical Summary ---
Demographics Address [address] [place] [address] Home Phone Work Phone Mobile Phone Preferred Language en Marital Status Single Latter Day Affiliation Unknown Race Black or Gin rican Ethnic Group Unknown Author Organization [facility] Address [address] [place] [address] Care Team Providers Care Paint Grinder Name Role Phone Wes Zamora MD Primary Care Prov ider Allergies No known active allergies Medications acetaminophen (Tylenol 8 Hour) 650 MG ER tablet Take 1 tablet by mouth every 8 (eight) hours. 2 Active Blood Pressure kit Active fluticasone (Flonase) 50 MCG/ACT nasal spray Administer 1-2 sprays into each nostril in the morning. Shake gently. Before first use, prime pump. After use, clean tip and replace cap. 16 g 2 3 Active Diclofenac Sodium 1 % gelIndications:N april pain APPLY TO THE NECK AND LEFT SHOULDER 3 TIMES A DAY 100 g 1 3 Active fluticasone (Flovent) 110 MCG/ACT inhalerIndicatio ns:Bronchitis with bronchospasm,Whe ezing Inhale 1 puff in the morning and at bedtime. Rinse mouth with water after use to reduce aftertaste and incidence of candidiasis. Do not swallow. 12 g 11 3 Active nicotine (Nicoderm CQ) 7 MG/24HR patchIndications :Smoking trying to quit Place 1 patch on the skin 1 (one) time each day at the same time. 30 patch 3 Active albuterol 108 (90 Base) MCG/ACT inhalerIndicatio ns:Other cough INHALE 2 PUFFS EVERY 4 HOURS IF NEEDED FOR WHEEZING. 18 g 1 3 Active gabapentin (Neurontin) 300 MG capsule Take 1 tab orally tid prn neuropathic pain 30 capsule 4 Active gabapentin (Neurontin) 600 MG tabletIndication s:Post herpetic neuralgia Take 1 tablet (600 mg) by mouth 2 times daily. 60 tablet 1 4 Active celecoxib (CeleBREX) 200 MG capsuleIndicatio ns:Post herpetic neuralgia TAKE 1 CAPSULE BY MOUTH TWICE A DAY 60 capsule 4 Active amLODIPine (Norvasc) 5 MG tablet Take 1 tablet (5 mg) by mouth Once per day. 30 tablet 11 4 09/20/20 25 Active Omeprazole 20 MG tablet delayed-release Take 1 tablet (20 mg) by mouth 2 times daily. 60 tablet 4 Active chlorthalidone (Hygroton) 25 MG tabletIndication s:Primary hypertension TAKE 1 TABLET BY MOUTH EVERY DAY IN THE MORNING 90 tablet 3 5 Active Active Problems Problem Noted Date Diagnosed [...] Encounters Date Type Department Care Team Description 03/11/2025 Orders Only GENERIC EXTERNAL DATA DEPARTMENT Provider, Generic External Data 01/25/2025 3:15 PM EDT Office Visit [facility] [address] [place] [address] Wes Zamora MD Dermoid cyst of skin of back (Primary Dx) 01/25/2025 Travel 01/20/2025 Telephone [facility] [address] [place] [address] Wes Zamora MD Walk-In 01/14/2025 Refill [facility] [address] [place] [address] Davey Bess MD Primary hypertension from Last [...] your housing situation today? I have felix sing 08/29/[address] you li [...] SDOH Screening 11/26/2023 11/26/2022 Mammogram 03/08/2024 03/08/2022, 042 07/2022, 11/25/2019 Pneumococcal Vaccine: 50+ Years (3 of [...] Procedure Name Priority Date/Time Associated Diagnosis Comments GROSS AND MICROSCOPIC LEVEL 3 Routine 03/11/2025 9:48 AM EDT LIPID PANEL, STANDARD Routine 06/09/2023 9:45 AM EDT Primary hypertension MAMMOGRAM GENERIC Routine 03/08/2022 9:2 5 AM EDT from Last 3 Months or Most Recently Relevant to Health Maintenance Results * Gross and Microscopic Level 3 (03/11/2025 9:48 AM EDT) 03/11/2025 9:48 AM EDT 03/11/2025 10:57 AM EDT [facility] - 03/14/2025 2:20 PM EDT ----- ------- Name: Denise Dumont ? Age/Sex: 70/F ? : 1955 Unit#: [id number] ?? Attend Dr: Jeff Ricks MD ?Re03/11/25 ?Status: DEP SDC ? Location: HO.SSS ?Disch: ? ----- ------- SPEC : [id number] ? RECD: 03/11/25-1056 ? STATUS: ??SOUT ? REQ NUM: [id number] ? VIRY: 03/11/25-09 ? SUBM DR: Jeff Ricks MD ? ENTERED: ??03/11/25 ?SP TYPE: Surgical ? OTHR DR: Wes Zamora MD ORDERED: ??Gross Micro L3 ? Diagnosis ?? Skin, left back, excision: ??Epidermal inclusion cyst. ?Clinical History Sebaceous cyst ?Microscopic Description Microscopic sections reviewed. ? Material Received ?? Cyst, left back ? Gross Description Received in formalin labeled ?cyst left back? is an oval cystic structure measuring 3.2 x 2.2 x 1.7 cm. ??The outer surface is pink white and smooth with adherent yellow adipose tissue. ??The specimen is covered on 1 side by an ellipse of ortega skin measuring 3.5 x 1.5 cm. The margins are inked blue. ??Sectioning reveals a cavity measuring 2.0 cm in diameter that is filled with soft, ortega white keratin material. ??The cyst wall measures 0.1 cm in thickness. ??The inner lining is smooth and unremarkable. ??Telecommunication Equipment Repairer cross sections are submitted for microscopic examination, 2 pieces in cassette A. ??([facility]) Copies To: ?? Wes Zamora MD ?? [facility] ?? [address] ?? [place] [address] ?? [phone] ?? Jeff Ricks MD ?? [facility] ?? [address] ?? [place] [address] ?? [phone] ----- ------- Signed (signature on file) Ian Hayden MD 03/14/25 1420 ? ----- ------- ? END OF REPORT ? us Generic External Data Provider LAB CYTOLOGY ABY EGAN Final Result [facility] [address] [place] [phone] * Lipid Panel, Standard (06/09/2023 9:45 AM EDT) Triglycerides 130 mg/dL [facility] Comment:Desirable Triglyceri de: less than 150 mg/dLBorderline High Triglyceride 150-199 mg/dLHigh Triglyceride: 200-499 mg/dLVery High Triglyceride: greater than or equal to 5OO mg/dL Cholesterol 196 mg/dL [facility] Comment:Desirable Cholestero l: less than 200 mg/dLBorderline High Cholesterol: 200-239 mg/dLHigh Cholesterol: greater than 239 mg/dL LDL Cholesterol Calculated 107 mg/dl [facility] Comment:Desirable LDL: less than 100 mg/dLNear Optimal/Above Optimal LDL: 110- 129 mg/dLBorderline High LDL: 130-159 mg/dLHigh LDL: 160-189 mg/dLVery High LDL: greater than or equal to 190 mg/dL HDL Cholesterol 63 mg/dL [facility] Comment:Desirable HDL: great er than 40 mg/dL Note: This HDL assay may give artificially low results in patients with liver disease. Blood Venous blood specimen / Unknown 06/09/2023 9:45 AM EDT 06/09/2023 2:21 PM EDT Wes Peterson MD LAB BLOOD ORDERABL ES Final Result [facility] [address] [place] [phone] * Mammography Report 1 (03/08/2022 9:25 AM EDT) Anatomical Region Laterality Modality Breast Bilateral Mammography 03/08/2022 9:25 AM EDT Narrative 03/20/2022 7:47 AM EDT Refer to the Notes tab for result details [facility] Procedure: Mammography Report 1 Procedure Note Provider, MD Mathew - 02/02/2023 Refer to the Notes tab for result details [facility] Procedure: Mammography Report 1 Wes Peterson MD IMG BI PROCEDURES Final Result from Last 3 Months or Most Recently Relevant to Health Maintenance Insurance * Guarantor: Denise Dumont Account Type Relation to Patient Date of Phone Billing Address Personal/Family Self 1955 [address] [place] [address] [facility] STANDARD [employer] MEDICARE REPLACEMENT * Guarantor: Denise Dumont Account Type Relation to Patient Date of Phone Billing Address Personal/Family Self [address] [place] [address] * Guarantor: Denise Dumont Account Type Relation to Patient Date of Phone Billing Address Personal/Family Self [address] [place] [address] * Guarantor: Denise Dumont Account Type Relation to Patient Date of Phone Billing Address Personal/Family Self [address] [place] [address] Care Teams Paint Grinder Relationship Specialty Start Date End Date PortilloWes Steve MD [address] [place] [phone] PCP - General Internal Medicine 07/29/19
--- OUTSIDE RECORDS SUMMARY | 2025-03-22 12:54 | XMS_ITS | Encounter Summary ---
Demographics Address [address] [place] [address] Home Phone Work Phone Mobile Phone Preferred Language en Marital Status Single Episcopalian Affiliation Unknown Race Black or Gin rican Ethnic Group Unknown Author Organization [employer] Address [address] [place] [address] Care Team Providers Care Keyboard Action Assembler Name Role Phone Wes Zamora MD Primary Care Prov ider Encounter Details Date Type Department Care Team (Latest Contact Info) Description 11/30/2019 Abstract [facility] CONVERSIONS Dental, Provider, DDS Social History [...] on filedocumented in this encounter Care Teams Keyboard Action Assembler Relationship Specialty Start Date End Date Wes Zamora MD [address] [place] [address] PCP - General Internal Medicine 07/29/19 documented as of this encounter
== END 2025-03-22 13:56 | disposition home or self-care (01) ==
LOC: HO.HGS 11:24
PROVIDERS: PCP Internal Medicine; Visit Provider Physician Assistant Surgical
DX: Z48.89 Encounter for other specified surgical aftercare (principal)
CPT/HCPCS: 99024

== ENCOUNTER → 2025-03-22 11:23 | Outpatient (BNVA) | payer MEDICARE, MEDICAID, SELFPAY | PROVIDERS: PCP Internal Medicine; Visit Provider Physician Assistant Surgical | DX: Z48.89 Encounter for other specified surgical aftercare (principal) | CPT/HCPCS: 99212 ==